=== PATIENT | male | born 1975 | race Caucasian/White ===

== ENCOUNTER 2024-04-20 15:28 | Inpatient (IN) ==
--- NOTE | 2024-04-20 15:57 | ED Triage Note ---
Date of Service April 20, 2024 Provider in Triage Author: Maggy Fernando History of Present Illness This patient was briefly evaluated while in triage. An abbreviated physical exam was performed. This patient is a 48-year-old Male who presents to the ED for evaluation of severe abdominal pain. Patient states that abdominal pain and diarrhea began last wednesday. Patient notes that his stool has pus in it and he's feeling bloated and painful with each BM. Patient was placed on Zithromax for ear infection prior to symptoms beginning but he stopped the antibiotic due to symptoms. Physical Exam Physical Exam Patient is awake, alert and oriented. Communicates well with staff. Patient does not appear in any significant distress. Abdomen soft and non-tender. Initial orders for labs and / or imaging were placed and patient was placed in the waiting area until a bed is available. Please see further documentation for the full ED course. Initial orders for labs and / or imaging were placed and patient was placed in the waiting area until a bed is available. Please see further documentation for the full ED course.
[2024-04-20 16:48] LABS: Basophils % (auto) 1.3 %; Eosinophils # (auto) 0.48 K/uL (0.00-0.50); Eosinophils % (auto) 6.2 %; Hematocrit (blood only) 43.9 % (42.0-52.0); Hemoglobin 14.2 g/dl (14.0-18.0); Immature Granulocytes # (auto) 0.04 K/uL (0.01-0.20); Immature Granulocytes % (auto) 0.5 %; Lymphocytes # (auto) 2.11 K/uL (1.20-3.40); Lymphocytes % (auto) 27.4 %; Mean Corpuscular Hemoglobin 26.9 pg (25.0-34.0); Mean Corpuscular Hgb Conc 32.3 g/dL (32.0-36.0); Mean Corpuscular Volume 83.1 fL (80.0-100.0); Mean Platelet Volume 9.1 fL (9.4-12.4); Monocytes # (auto) 0.61 K/uL (0.11-0.59); Monocytes % (auto) 7.9 %; Neutrophils # (auto) 4.37 K/uL (1.40-6.50); Neutrophils % (auto) 56.7 %; Platelet Count 303 K/uL (130-400); RDW Coefficient of Variation 14.8 % (11.5-14.5); RDW Standard Deviation 45.5 fL (36.4-46.3); Red Blood Count 5.28 M/uL (4.70-6.10); White Blood Count 7.71 K/ul (4.8-10.8)
[2024-04-20 17:05] LABS: Albumin Globulin Ratio 1.2 (0.9-2); BUN Creatinine Ratio 16.7 (10-20); Bilirubin,Total 0.3 mg/dl (0.2-1.0); Calcium 9.2 mg/dl (8.6-10.3); Globulin 3.4 gm/dl (2.5-4.0); Potassium 4.3 mmol/L (3.5-5.1); Total Protein 7.4 gm/dl (6.0-8.3)
[2024-04-20] MEDS: OPTIRAY 320 100ml IV ONE (17:23)
[2024-04-20 17:41] LABS: Appearance Urine Clear (Clear); Bilirubin Urine Negative (Negative); Blood Urine Negative (Negative); Color Urine Yellow; Glucose Urine UA Negative (Negative); Ketones Urine Negative (Negative); Leukocyte Esterase Urine Negative (Negative); Nitrite Urine Negative (Negative); Protein Urine Negative (Negative); Specific Gravity Urine 1.028 (1.000-1.030); Urobilinogen Urine Negative (Negative)
--- NOTE | 2024-04-20 18:15 | CT Scan Report ---
CT SCAN OF THE ABDOMEN AND PELVIS WITH IV CONTRAST CLINICAL HISTORY: Generalized abdominal pain. Diarrhea. COMPARISON STUDY: No priors. TECHNIQUE: Following the IV administration of 93 cc of Optiray 320, CT scan of the abdomen and pelvi s is performed from the lung bases to the proximal femora. Images are reviewed in the axial, sagittal , and coronal planes. IV contrast was administered without complication. A dose lowering technique wa s utilized adhering to the principles of ALARA. CT DOSE: 1411.04 mGy.cm FINDINGS: Lung bases: The heart is normal in size and without pericardial effusion. The lung bases are clear. T here is a small hiatal hernia. Liver: The contrast-enhanced liver is normal in size, contour, and attenuation. There is no intrahepa tic biliary ductal dilatation. The hepatic veins and portal veins are patent. Gallbladder: Unremarkable. Spleen: Normal in size and attenuation. Pancreas: Unremarkable. Adrenal glands: Unremarkable. Kidneys: The contrast enhanced kidneys are normal in size and without hydronephrosis. The kidneys enh ance symmetrically. Abdominal vasculature: The abdominal aorta is normal in course and caliber. Bowel: There is mild colonic diverticulosis. Wall thickening and inflammatory changes seen involving the sigmoid colon and at the rectosigmoid junction. There is a a 2.4 x 4.0 x 1.8 cm fluid collection between these 2 loops as seen on image #305. This favors a diverticular abscess, likely from the sigm oid colon. No bowel obstruction is seen. A large calcified appendicolith is seen at the base of the a ppendix on image #236. There is no CT evidence of acute appendicitis Peritoneum: There is no intraperitoneal free air or abdominal ascites. There is a fat-containing umbi lical hernia. Lymphadenopathy: None. Pelvic viscera: The bladder, prostate, and seminal vesicles are normal as visualized. Skeletal structures: There is mild lumbosacral spondylosis. No lytic or blastic lesions are seen. IMPRESSION: 1. Findings are most consistent with sigmoid diverticulitis. This may be subacute, and there is evide nce of a 4.0 cm diverticular abscess between the sigmoid colon and the rectosigmoid junction. This is not amenable to percutaneous drainage. 2. No intraperitoneal free air is seen. 3. A large appendicolith is seen at the base of the appendix. There is no evidence of acute appendici tis. 4. Additional findings as above. ACT 112: Negative or not required by law. Electronically signed by: Shahzad Yañez M.D. 04/20/2024 6:12 PM
--- NOTE | 2024-04-20 18:35 | Emergency Department Note ---
Impression & Plan Colonic diverticular abscess, Diverticulitis, Abdominal pain ED Provider Note NAME: DOMINGA GAN AGE: 48 SEX: M : 1975 ARRIVES VIA: Walk-In INFORMANT: Patient, ED PROVIDER(S): Elias Lai DO CHIEF COMPLAINT: Abdominal pain HPI: The patient is a 48-year-old male who presented to the emergency department for an evaluation of abdominal pain. The patient describes lower abdominal pain which began approxi-1 week ago. He has been noticing fevers subjectively at night. He also has significant pain with defecation. He notices no rectal bleeding but he has noted some loose stools. He was recently started on an antibiotic for an ear infection. He states he thought he might have C. difficile because of this. He denies having any vomiting or GI bleeding. ROS: See above HPI for pertinent positives & negatives. A total of 10 systems reviewed and were otherwise negative. PAST MEDICAL HISTORY: See Below PAST SURGICAL HISTORY: See Below FAMILY HISTORY: See Below SOCIAL HISTORY: See Below HOME MEDICATIONS: See Below ALLERGIES: See Below VITALS: See Below PHYSICAL EXAMINATION: GENERAL: Patient is awake alert in no acute distress patient is resting comfortably and showing no signs of anxiety EYES: The conjunctivae are clear. The pupils are round and reactive. EARS, NOSE, MOUTH AND THROAT: The nose is without any evidence of any deformity. NECK: The neck is nontender and supple. RESPIRATORY: Normal respiratory effort is noted there is no evidence of wheezing rhonchi or rales CARDIOVASCULAR: Regular rate and rhythm noted there no murmurs rubs or gallops normal S1 normal S2. GASTROINTESTINAL: The abdomen is distended. There is suprapubic and lower abdominal tenderness to palpation. This is moderate tenderness. MUSCULOSKELETAL/EXTREMITIES: There is no evidence of gross deformity full range of motion is noted in the hips and shoulders. SKIN: There is no obvious evidence of any rash. There are no petechiae, pallor or cyanosis noted. NEUROLOGIC: Patient is awake alert and oriented x3 gait was steady.. MEDICAL DECISION MAKING: The patient is a 48-year-old male who presented to the emergency department for an evaluation of lower abdominal pain. The patient was experiencing pain over the course of the last several days. He was also noticing fever. I discussed the patient's laboratory and radiographic studies with him. He was treated with IV fluids IV pain medication IV antiemetics and IV antibiotics for diverticular abscess. I discussed his condition with the on-call general surgeon as well as the on-call [facility]ist. They have agreed to evaluate the patient in the emergency department for further management and disposition. Triage Nursing notes reviewed. Prior medical records reviewed Vital Signs: reviewed and remarkable for no significant abnormalities Differential diagnosis: Etiologies such as appendicitis, diverticulitis, obstruction, inflammatory bowel disease, renal colic, PUD, biliary pathology, pancreatitis, mesenteric ischemia, aortic pathology, infections, genitourinary, UTI, perforated viscus, as well as others were entertained. ER treatment provided: See below Diagnostics interpreted by me: ECG: none Cardiac Monitoring: An order was placed for continuous cardiac monitoring. The monitor shows a rate of 59 bpm with sinus bradycardia.. Laboratory studies: As stated above and show below. Imaging studies: See below. Radiographic imaging was reviewed by myself Consultation(s): I discussed this case with Lauryn was on for the [facility] Hospitalist her wrist. I discussed this case with Dr. Mosquera who is on for general surgery. Past Med/Surg History Problem List (Updated 04/20/24 @ 23:37 by Elias Lai DO) Abdominal pain (Acute) Diverticulitis (Acute) Colonic diverticular abscess (Acute) Intestinal diverticular abscess Sigmoid diverticulitis Chronic rhinitis Nasal septal perforation Rotator cuff strain Wrist swelling Wrist sprain Wrist arthritis Chronic sinusitis of both maxillary sinuses (Acute) Encounter for pre-operative examination Acquired deviated nasal septum Allergic rhinitis Eustachian tube dysfunction Surgical History History of sinus surgery endoscopic sinus surgery, septoplasty, and bilateral inferior turbinate reduction on 03/27/21- Dr. Nichols History of hand surgery Pinky finger History of hernia repair x2 History of shoulder surgery History of surgery on wrist x2 Family History Father Cancer unknown type Brother Allergies Other No family history of adverse response to anesthesia No family history of bleeding disorder Social History Smoking Status: Never smoker Second Hand Exposure: No; Do You Dip or Chew Tobacco: No; Hx Alcohol Use: No Hx Substance Use: No Preferred Language: Luxembourgish Communication Ability: Effective Floor Scraper Required: No Beliefs That Will Affect Care: None marital status: Current Living Situation: Spouse current occupational status: employed 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 Feels Safe at Home: Yes Safety Concerns: Feels Safe At This Time Assistive Devices: None Allergies Allergies Allergy/AdvReac Type Severity Reaction Status Date / Time grass pollen Allergy Verified 05/29/21 13:14 house dust mite Allergy Verified 05/29/21 13:14 mold Allergy Verified 05/29/21 13:14 No Known Drug Allergies Allergy Verified 05/29/21 13:14 Home Meds Home Medications Medication Instructions Recorded Confirmed montelukast 10 mg tablet 10 mg PO DAILY PRN Allergy Symptoms 12/11/20 04/20/24 (Singulair) alprazolam 0.5 mg tablet 0.5 mg PO UD PRN Anxiety 01/10/23 04/20/24 sumatriptan succinate 50 mg tablet 50 mg PO UD PRN Migraine Headache 01/10/23 04/20/24 Results & Data (ED) Vital Signs Vital Signs - 24 hr 04/20/24 15:52 Temperature 36.5 C Temperature Source Temporal Artery Scan Pulse Rate 94 H Respiratory Rate 20 Respiratory Effort / Characteristics Non-Labored Spontaneous Respiratory Depth Normal Blood Pressure 131/94 Blood Pressure Mean 106 Pulse Oximetry 95 Oxygen Delivery Method Room Air Sepsis Recent Fever Within 48 Hours No Sepsis New/Unexplained Change in Mental Status N/A Sepsis Action Taken by Nursing No Action Required Home Medications Current Medication List: was personally reviewed by me Laboratory Data Attestation: I reviewed the patient's lab results. 04/20/24 16:30 04/20/24 16:30 Lab Results 04/20/24 04/20/24 Range/Units 16:30 17:29 WBC 7.71 (4.8-10.8) K/ul RBC 5.28 (4.70-6.10) M/uL Hgb 14.2 (14.0-18.0) g/dl Hct 43.9 (42.0-52.0) % MCV 83.1 (80.0-100.0) fL MCH 26.9 (25.0-34.0) pg MCHC 32.3 (32.0-36.0) g/dL RDW Std Deviation 45.5 (36.4-46.3) fL RDW Coeff of Traci 14.8 H (11.5-14.5) % Plt Count 303 (130-400) K/uL MPV 9.1 L (9.4-12.4) fL Immature Gran % (Auto) 0.5 % Neut % (Auto) 56.7 % Lymph % (Auto) 27.4 % [place] % (Auto) 7.9 % Eos % (Auto) 6.2 % Baso % (Auto) 1.3 % Neut # (Auto) 4.37 (1.40-6.50) K/uL Lymph # (Auto) 2.11 (1.20-3.40) K/uL [place] # (Auto) 0.61 H (0.11-0.59) K/uL Eos # (Auto) 0.48 (0.00-0.50) K/uL Baso # (Auto) 0.10 (0.00-0.20) K/uL Immature Gran # (Auto) 0.04 (0.01-0.20) K/uL Sodium 142 (136-145) mmol/L Potassium 4.3 (3.5-5.1) mmol/L Chloride 104 (98-107) mmol/L Carbon Dioxide 30 (21-32) mmol/L Anion Gap 8 (3-11) BUN 18 (6-23) mg/dl Creatinine 1.08 (0.6-1.4) mg/dl Est Cr Clr Drug Dosing 109.0 ml/min eGFR 84.65 BUN/Creatinine Ratio 16.7 (10-20) Glucose 70 (70-99(Fasting)) mg/dl Calcium 9.2 (8.6-10.3) mg/dl Total Bilirubin 0.3 (0.2-1.0) mg/dl AST 25 (13-39) U/L ALT 35 (7-52) U/L Alkaline Phosphatase 83 (34-104) U/L Total Protein 7.4 (6.0-8.3) gm/dl Albumin 4.0 (3.4-5.0) gm/dl Globulin 3.4 (2.5-4.0) gm/dl Albumin/Globulin Ratio 1.2 (0.9-2) Lipase 21 (11-82) U/L Urine Color Yellow Urine Appearance Clear (Clear) Urine pH 6.0 (4.5-7.5) Ur Specific [place] 1.028 (1.000-1.030) Urine Protein Negative (Negative) Urine Glucose (UA) Negative (Negative) Urine Ketones Negative (Negative) Urine Blood Negative (Negative) Urine Nitrite Negative (Negative) Urine Bilirubin Negative (Negative) Urine Urobilinogen Negative (Negative) Ur Leukocyte Esterase Negative (Negative) Administered Medications Enoxaparin Sodium (Enoxaparin Inj 40 Mg/0.4 Ml Syr) 40 mg SQ HS RESHMA Stop: 05/20/24 21:17 Last Admin: 04/20/24 21:30 Dose: Not Given Documented By: KASSY Lactated Ringer's (Lr) 1,000 mls @ 100 mls/hr IV .Q10H RESHMA Stop: 04/21/24 21:17 Last Admin: 04/20/24 21:31 Dose: 100 mls/hr Documented By: KASSY Morphine Sulfate (Morphine Sulfate 4 Mg/Ml 1 Ml Carp\Vial) 3 mg IV Q3H PRN PRN Reason: Severe Pain (Scale 7, 8, 9,10) Stop: 05/04/24 21:17 Last Admin: 04/20/24 21:55 Dose: 3 mg Documented By: KASSY Discontinued Medications Fentanyl Citrate (Fentanyl Citrate Pf 100 Mcg/2 Ml Vial) 50 mcg IV Q15M PRN PRN Reason: Pain Stop: 05/04/24 18:48 Last Admin: 04/20/24 19:08 Dose: 50 mcg Documented By: HARINI Piperacillin Sod/Tazobactam Sod (Zosyn) 4.5 gm in 100 mls @ 200 mls/hr IV NOW ONE; Protocol Stop: 04/20/24 18:49 Last Infusion: 04/20/24 19:42 Dose: Infused Documented By: Admin: 04/20/24 19:11 Dose: 200 mls/hr Documented By: DANIELLE Acetaminophen (Ofirmev) 1,000 mg in 100 mls @ 400 mls/hr IV NOW STA Stop: 04/20/24 19:33 Last Infusion: 04/20/24 19:59 Dose: Infused Documented By: Admin: 04/20/24 19:31 Dose: 400 mls/hr Documented By: MED Ioversol (Optiray 320 100ml) 93 ml IV ONCE ONE Stop: 04/20/24 17:23 Last Admin: 04/20/24 17:23 Dose: 93 ml Documented By: KELLY Ondansetron HCl (Ondansetron Inj 2 Mg/Ml 2 Ml Vial) 4 mg IV NOW STA Stop: 04/20/24 18:50 Last Admin: 04/20/24 19:07 Dose: 4 mg Documented By: HARINI Imaging Data Attestation: I personally reviewed and interpreted this imaging study as follows: My Impression: CT of the abdomen and pelvis was obtained in the emergency department. My interpretation is no free air or definite bowel obstruction, final report below. Radiologist's Impression: Abdomen/Pelvis CT 04/20/24 15:57 CT SCAN OF THE ABDOMEN AND PELVIS WITH IV CONTRAST CLINICAL HISTORY: Generalized abdominal pain. Diarrhea. COMPARISON STUDY: No priors. TECHNIQUE: Following the IV administration of 93 cc of Optiray 320, CT scan of the abdomen and pelvis is performed from the lung bases to the proximal femora. Images are reviewed in the axial, sagittal, and coronal planes. IV contrast was administered without complication. A dose lowering technique was utilized adhering to the principles of ALARA. CT DOSE: 1411.04 mGy.cm FINDINGS: Lung bases: The heart is normal in size and without pericardial effusion. The lung bases are clear. There is a small hiatal hernia. Liver: The contrast-enhanced liver is normal in size, contour, and attenuation. There is no intrahepatic biliary ductal dilatation. The hepatic veins and portal veins are patent. Gallbladder: Unremarkable. Spleen: Normal in size and attenuation. Pancreas: Unremarkable. Adrenal glands: Unremarkable. Kidneys: The contrast enhanced kidneys are normal in size and without hydronephrosis. The kidneys enhance symmetrically. Abdominal vasculature: The abdominal aorta is normal in course and caliber. Bowel: There is mild colonic diverticulosis. Wall thickening and inflammatory changes seen involving the sigmoid colon and at the rectosigmoid junction. There is a a 2.4 x 4.0 x 1.8 cm fluid collection between these 2 loops as seen on image #305. This favors a diverticular abscess, likely from the sigmoid colon. No bowel obstruction is seen. A large calcified appendicolith is seen at the base of the appendix on image #236. There is no CT evidence of acute appendicitis Peritoneum: There is no intraperitoneal free air or abdominal ascites. There is a fat-containing umbilical hernia. Lymphadenopathy: None. Pelvic viscera: The bladder, prostate, and seminal vesicles are normal as visualized. Skeletal structures: There is mild lumbosacral spondylosis. No lytic or blastic lesions are seen. IMPRESSION: 1. Findings are most consistent with sigmoid diverticulitis. This may be subacute, and there is evidence of a 4.0 cm diverticular abscess between the sigmoid colon and the rectosigmoid junction. This is not amenable to percutaneous drainage. 2. No intraperitoneal free air is seen. 3. A large appendicolith is seen at the base of the appendix. There is no evidence of acute appendicitis. 4. Additional findings as above. ACT 112: Negative or not required by law. Electronically signed by: Shahzad Yañez M.D. 04/20/2024 6:12 PM Discharge Plan Visit Data Chief Complaint: Abdominal Pain Stated Complaint: LOWER ABD, TROUBLE USING THE BATHROOM ED Provider: Elias Lai Discharge Problem: Colonic diverticular abscess, Diverticulitis, Abdominal pain Patient Disposition: Admitted As Inpatient Discharge Instructions Interventions: ED Discharge Assessment Last Done: 04/20/24 21:10 Discharge Problem: Abdominal pain Qualifiers: Abdominal location: lower abdomen, unspecified Qualified Code(s): R10.30 - Lower abdominal pain, unspecified
[2024-04-20] MEDS: ONDANSETRON INJ 2 MG/ML 2 ML VIAL IV STA (19:07)
[2024-04-20] MEDS: fentaNYL citrate PF 100 MCG/2 ML VIAL IV PRN (19:08)
[2024-04-20] MEDS: PIPERACILLIN/TAZOBACTAM 4.5 GM/100 ML BAG IV ONE (19:11)
[2024-04-20] MEDS: ACETAMINOPHEN 1,000 MG/100 ML VIAL IV STA (19:31)
--- NOTE | 2024-04-20 19:34 | History & Physical Report ---
Date of Service April 20, 2024 Assessment & Plan (1) Sigmoid diverticulitis: (2) Intestinal diverticular abscess: Plan This is a 48-year-old male who has significant past medical history of anxiety and seasonal allergies who presents to ED secondary to abdominal pain x 4 days. Sigmoid diverticulitis 4.0 CM diverticular abscess between sigmoid colon and rectosigmoid junction Admit to med/surg NPO, bowel rest, IVF - given IVF shortage they are set to stop after 24hrs, please ensure resumption if pt remains NPO IV antiemetics, analgesia IV Zosyn, probiotic consult general surgery - pt also reports a bulging to rectum with BM - appears pt may have a prolapsing hemorrhoid on exam, will defer to gen surg Pt has never had a C scope, will need on in 6-8 weeks once healed DVT ppx: SQ lovenox Dispo: admit to med/surg FULL CODE PCP: Elida Pt was seen and examined in collaboration with Dr. Andersen, please see addendum I spent a total of 76 minutes reviewing notes, outpatient records, labs, medication, coordinating, documenting and providing care for this patient excluding time spent in the performance of separately billed services. History of Present Illness Chief Complaint: Abd pain x 4 days. Primary Care Provider: Faith Marrero MD This is a 48-year-old male who has significant past medical history of anxiety and seasonal allergies who presents to ED secondary to abdominal pain x 4 days. 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 He states recently he went to urgent care due to fever and sinus pressure. He was told he had a sinus infection and a double ear infection. He was started on azithromycin. He took 2 days of the azithromycin and got, "deathly ill." He complained of a stabbing lower abdominal pain with nausea and diarrhea. He stopped the azithromycin and those symptoms mostly resolved. And then 4 to 5 days ago he developed dull, persistent suprapubic to left lower quadrant abdominal pain. Patient persisted over the past 4 to 5 days. In the evening he would get a persistent fever. Over the last 24 hours he has had minimal intake. He reports to pain with defecation as well as some hematochezia. He denies any chills, sweats, lightheadedness, dizziness, chest pain, shortness of breath, cough, nausea, vomiting, dysuria, increased urgency or frequency with urination. In ED patient remained hemodynamically stable though mildly tachycardic. CT abdomen pelvis reveal sigmoid diverticulitis and a 4.0 cm diverticular abscess between the sigmoid colon and rectosigmoid junction nonamenable to percutaneous drainage. Allergies Allergy/AdvReac Type Severity Reaction Status Date / Time grass pollen Allergy Verified 05/29/21 13:14 house dust mite Allergy Verified 05/29/21 13:14 mold Allergy Verified 05/29/21 13:14 No Known Drug Allergies Allergy Verified 05/29/21 13:14 Home Medications Medication Instructions Recorded Confirmed Type montelukast 10 mg tablet 10 mg PO DAILY PRN Allergy Symptoms 12/11/20 04/20/24 History (Singulair) alprazolam 0.5 mg tablet 0.5 mg PO UD PRN Anxiety 01/10/23 04/20/24 History sumatriptan succinate 50 mg tablet 50 mg PO UD PRN Migraine Headache 01/10/23 04/20/24 History Past Med/Surg History Problem List (Updated 04/20/24 @ 19:29 by Lauryn Mcgee PA-C) Intestinal diverticular abscess Sigmoid diverticulitis Chronic rhinitis Nasal septal perforation Rotator cuff strain Wrist swelling Wrist sprain Wrist arthritis Chronic sinusitis of both maxillary sinuses (Acute) Encounter for pre-operative examination Acquired deviated nasal septum Allergic rhinitis Eustachian tube dysfunction Surgical History History of sinus surgery endoscopic sinus surgery, septoplasty, and bilateral inferior turbinate reduction on 03/27/21- Dr. Nichols History of hand surgery Pinky finger History of hernia repair x2 History of shoulder surgery History of surgery on wrist x2 Family History Father Cancer unknown type Brother Allergies Other No family history of adverse response to anesthesia No family history of bleeding disorder Social History Smoking Status: Never smoker Second Hand Exposure: No; Do You Dip or Chew Tobacco: No; Hx Alcohol Use: No Hx Substance Use: No Preferred Language: Stateless Communication Ability: Effective Log Roper Required: No Beliefs That Will Affect Care: None marital status: Current Living Situation: Significant Other current occupational status: employed 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 Normal insp/exp effort, no accessory muscle use Cardiovascular: RRR, no murmur, no edema Vessels: no JVD or carotid bruit Chest: normal inspection of chest Abdomen: normal bowel sounds, soft, TTP suprapubic region, LLQ, no rebound/guarding Musculoskeletal: no cyanosis or clubbing, extremities motor strength 5/5 Skin: no rashes, warm and dry normal turgor Neurologic: PERRL, EOMI, accommodation nl, no face palsy, no dysarthria CN's II-XI intact bilaterally and moves all extremities Psychiatric: A+Ox3, euthymic affect Lymphatic: no cervical or axillary lymphadenopathy : pt with what appears to be int/ext hemorrhoid, nonthrombosed at approx 9oclock, pt reports protruding area with BM and resolves after Results & Data Results & Data Vital Signs (Past 12 Hours) Vital Signs Temp Pulse Resp BP Pulse Ox O2 Del Method 04/20/24 15:52 36.5 C 94 H 20 131/94 95 Room Air Laboratory Results I have independently reviewed and interpreted patient's admitting labs including CBC, CMP, UA Diagnostic Findings Abdomen/Pelvis CT 04/20/24 15:57 CT SCAN OF THE ABDOMEN AND PELVIS WITH IV CONTRAST CLINICAL HISTORY: Generalized abdominal pain. Diarrhea. COMPARISON STUDY: No priors. TECHNIQUE: Following the IV administration of 93 cc of Optiray 320, CT scan of the abdomen and pelvis is performed from the lung bases to the proximal femora. Images are reviewed in the axial, sagittal, and coronal planes. IV contrast was administered without complication. A dose lowering technique was utilized adhering to the principles of ALARA. CT DOSE: 1411.04 mGy.cm FINDINGS: Lung bases: The heart is normal in size and without pericardial effusion. The lung bases are clear. There is a small hiatal hernia. Liver: The contrast-enhanced liver is normal in size, contour, and attenuation. There is no intrahepatic biliary ductal dilatation. The hepatic veins and portal veins are patent. Gallbladder: Unremarkable. Spleen: Normal in size and attenuation. Pancreas: Unremarkable. Adrenal glands: Unremarkable. Kidneys: The contrast enhanced kidneys are normal in size and without hydronephrosis. The kidneys enhance symmetrically. Abdominal vasculature: The abdominal aorta is normal in course and caliber. Bowel: There is mild colonic diverticulosis. Wall thickening and inflammatory changes seen involving the sigmoid colon and at the rectosigmoid junction. There is a a 2.4 x 4.0 x 1.8 cm fluid collection between these 2 loops as seen on image #305. This favors a diverticular abscess, likely from the sigmoid colon. No bowel obstruction is seen. A large calcified appendicolith is seen at the base of the appendix on image #236. There is no CT evidence of acute appendicitis Peritoneum: There is no intraperitoneal free air or abdominal ascites. There is a fat-containing umbilical hernia. Lymphadenopathy: None. Pelvic viscera: The bladder, prostate, and seminal vesicles are normal as visualized. Skeletal structures: There is mild lumbosacral spondylosis. No lytic or blastic lesions are seen. IMPRESSION: 1. Findings are most consistent with sigmoid diverticulitis. This may be subacute, and there is evidence of a 4.0 cm diverticular abscess between the sigmoid colon and the rectosigmoid junction. This is not amenable to percutaneous drainage. 2. No intraperitoneal free air is seen. 3. A large appendicolith is seen at the base of the appendix. There is no evidence of acute appendicitis. 4. Additional findings as above. ACT 112: Negative or not required by law. Electronically signed by: Shahzad Yañez M.D. 04/20/2024 6:12 PM Medications Administered Current Inpatient Medications Fentanyl Citrate (Fentanyl Citrate Pf 100 Mcg/2 Ml Vial) 50 mcg IV Q15M PRN PRN Reason: Pain Stop: 05/04/24 18:48 Last Admin: 04/20/24 19:08 Dose: 50 mcg Acetaminophen (Ofirmev) 1,000 mg in 100 mls @ 400 mls/hr IV NOW STA Stop: 04/20/24 19:33 COVID-19 Results Results COVID-19 Adm Lab Results: RBC 5.28 M/uL (4.70-6.10) 04/20/24 WBC 7.71 K/ul (4.8-10.8) 04/20/24 Hgb 14.2 g/dl (14.0-18.0) 04/20/24 Hct 43.9 % (42.0-52.0) 04/20/24 Plt Count 303 K/uL (130-400) 04/20/24 Neutrophils (%) (Auto) 56.7 % 04/20/24 Lymphocytes (%) (Auto) 27.4 % 04/20/24 Monocytes # (Auto) 0.61 K/uL (0.11-0.59) H 04/20/24 Eosinophils # (Auto) 0.48 K/uL (0.00-0.50) 04/20/24 Immature Granulocyte % (Auto) 0.5 % 04/20/24 Neutrophils # (Auto) 4.37 K/uL (1.40-6.50) 04/20/24 Monocytes # (Auto) 0.61 K/uL (0.11-0.59) H 04/20/24 Eosinophils # (Auto) 0.48 K/uL (0.00-0.50) 04/20/24 Basophils # (Auto) 0.10 K/uL (0.00-0.20) 04/20/24 Immature Granulocyte # (Auto) 0.04 K/uL (0.01-0.20) 4 Na 142 mmol/L (136-145) 04/20/24 K 4.3 mmol/L (3.5-5.1) 04/20/24 Cl 104 mmol/L (98-107) 04/20/24 CO2 30 mmol/L (21-32) 04/20/24 Anion Gap 8 (3-11) 04/20/24 BUN 18 mg/dl (6-23) 04/20/24 Creatinine 1.08 mg/dl (0.6-1.4) 04/20/24 BUN/Creatinine Ratio 16.7 (10-20) 04/20/24 Glucose Level 70 mg/dl (70-99(Fasting)) 04/20/24 Ca 9.2 mg/dl (8.6-10.3) 04/20/24 Total Bilirubin 0.3 mg/dl (0.2-1.0) 04/20/24 AST/SGOT 25 U/L (13-39) 04/20/24 ALT/SGPT 35 U/L (7-52) 04/20/24 Alkaline Phosphatase 83 U/L (34-104) 04/20/24 Total Protein 7.4 gm/dl (6.0-8.3) 04/20/24 Albumin 4.0 gm/dl (3.4-5.0) 04/20/24 Globulin 3.4 gm/dl (2.5-4.0) 04/20/24 Albumin/Globulin Ratio 1.2 (0.9-2) 04/20/24 Code Status & VTE Plan VTE Prophylaxis Plan VTE Prophylaxis will be ordered: Yes Supervising Physician Co-Signing Physician Notes Attending addendum: The patient was seen and examined in emergency room He has been complaining of lower abdominal pain and pain on the right side of the rectum following bowel movement for the last few days Denies any abdominal distention, any nausea and/or vomiting Pain has been worse and that is the reason he is in the hospital Denies any fever and/or chills On examination Lying in bed without any acute distress Remains hemodynamically stable Chestclear to auscultate bilateral HeartS1-S2, regular Abdomensoft, not distended, tender left lower quadrant with rebound tenderness and bowel sound present Extremitiesno edema 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 No focal sensory or motor deficit appreciated His admission labs and imaging studies reviewed Noted to have 4 cm diverticular abscess involving the rectosigmoid junction without any evidence of micro and/or perforation Probably has external hemorrhoids/rectal prolapse as per description Surgery has been consulted Started with intravenous Zosyn and will continue likely convert to oral Cipro Flagyl and/or Augmentin on discharge Agree with assessment and plan as outlined above by Ameena Loaiza PA-C and take the full response of the care Dr Jose Andersen
--- NOTE | 2024-04-20 19:36 | Surgery Consultation ---
Date of Consultation April 20, 2024 Assessment & Plan (1) Sigmoid diverticulitis: Plan Patient is a 48-year-old male who presented to the ED with 4-5 days of abdominal pain. Patient also states he has worsening LLQ pain and cramping with bowel movements. He also has noted some bloody BMs and does have an external hemorrhoid on exam with no active bleeding appreciated. CT scan with results of sigmoid diverticulitis with 4cm diverticular abscess between the sigmoid colon and rectosigmoid junction. On exam the patient is tender to palpation in the LLQ however there are no signs of acute abdomen, vitals are stable and WBC wnl at 7.7. Recommend keeping patient NPO, IV hydration, and IV antibiotics to be initiated Will continue to perform serial abdominal exams and trend WBC. Patient will also need outpatient colonoscopy in 6-8 weeks Continue medical management per primary team, surgery will continue to follow History of Present Illness Reason for Consultation: Sigmoid Diverticulitis with abscess History of Present Illness Patient is 48-year-old male who presented to the ED with complaints of ongoing abdominal pain. Patient states 4-5 days ago he started with acute onset of lower abdominal pain that he describe as "stabbing" in nature. Patient states when the pain started he was unable to walk secondary to pain at times. He states he has had intermittent nausea without any episodes of emesis. He has also had diarrhea and states his abdominal pain worsens significantly with having a bowel movement. Patient also notes that he recently went to urgent care a few days ago for fevers and sinus pressure and was diagnosed with a sinus infection and double ear infection, he was prescribed Azithromycin and states after taking the antibiotics for 2 days when he became "deathly ill" and states that's also when his abdominal symptoms had started. Patient states his pain is mostly located in his left lower quadrant and it does radiate into his pelvic region especially when having a bowel movement. Patient states the the cramps and abdominal pain significantly worsens when having a BM. He has noted some bright red blood in his stool however states he does have hemorrhoids. Patient otherwise states his pain has lessened and he no longer feels nauseated. Patient was worked up in the ED and CT imaging revealed sigmoid diverticulitis with 4cm abscess between the sigmoid and rectosigmoid junction. Patient otherwise has stable vitals and WBC wnl, he is tender in the LLQ of his abdomen but otherwise has no signs of acute abdomen at this time. Patient denies ever having any previous episodes of diverticulitis. He also denies any previous abdominal surgeries or colonoscopy. Allergies Allergy/AdvReac Type Severity Reaction Status Date / Time grass pollen Allergy Verified 05/29/21 13:14 house dust mite Allergy Verified 05/29/21 13:14 mold Allergy Verified 05/29/21 13:14 No Known Drug Allergies Allergy Verified 05/29/21 13:14 Home Medications Medication Instructions Recorded Confirmed Type montelukast 10 mg tablet 10 mg PO DAILY PRN Allergy Symptoms 12/11/20 04/20/24 History (Singulair) alprazolam 0.5 mg tablet 0.5 mg PO UD PRN Anxiety 01/10/23 04/20/24 History sumatriptan succinate 50 mg tablet 50 mg PO UD PRN Migraine Headache 01/10/23 04/20/24 History Patient History Surgical History History of sinus surgery endoscopic sinus surgery, septoplasty, and bilateral inferior turbinate reduction on 03/27/21- Dr. Nichols History of hand surgery Pinky finger History of hernia repair x2 History of shoulder surgery History of surgery on wrist x2 Family History Father Cancer unknown type Brother Allergies Other No family history of adverse response to anesthesia No family history of bleeding disorder Social History Smoking Status: Never smoker Second Hand Exposure: No; Do You Dip or Chew Tobacco: No; Hx Alcohol Use: No Hx Substance Use: No Preferred Language: Upper Sorbian Communication Ability: Effective Secretary [employer] Required: No Beliefs That Will Affect Care: None marital status: Current Living Situation: Spouse current occupational status: employed 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 Feels Safe at Home: Yes Safety Concerns: Feels Safe At This Time Assistive Devices: None Review of Systems Review of Systems: All systems reviewed & are unremarkable except as noted in HPI & below Physical Exam Constitutional: WD/WN, vitals as above Respiratory: normal respiratory effort, lungs clear to auscultation Cardiovascular: RRR, no murmur, no edema Gastrointestinal (Abdomen): Inspection/Auscultation: abdomen normal to insp ection; abdomen not distended Percussion/Palpation: + abdomen tender (tenderness to the left lower quadrant ) and abdomen soft; no guarding, abdomen not rigid and abdomen not firm Rectal Exam: + hemorrhoids (External hemorrhoid at approximately 9 o'clock area. No active bleeding ) Results & Data Vital Signs (Past 12 Hours) Vital Signs Temp Pulse Resp BP Pulse Ox O2 Del Method 04/20/24 15:52 36.5 C 94 H 20 131/94 95 Room Air Diagnostic Findings CT SCAN OF THE ABDOMEN AND PELVIS WITH IV CONTRAST CLINICAL HISTORY: Generalized abdominal pain. Diarrhea. COMPARISON STUDY: No priors. TECHNIQUE: Following the IV administration of 93 cc of Optiray 320, CT scan of the abdomen and pelvis is performed from the lung bases to the proximal femora. Images are reviewed in the axial, sagittal, and coronal planes. IV contrast was administered without complication. A dose lowering technique was utilized adhering to the principles of ALARA. CT DOSE: 1411.04 mGy.cm FINDINGS: Lung bases: The heart is normal in size and without pericardial effusion. The lung bases are clear. There is a small hiatal hernia. Liver: The contrast-enhanced liver is normal in size, contour, and attenuation. There is no intrahepatic biliary ductal dilatation. The hepatic veins and portal veins are patent. Gallbladder: Unremarkable. Spleen: Normal in size and attenuation. Pancreas: Unremarkable. Adrenal glands: Unremarkable. Kidneys: The contrast enhanced kidneys are normal in size and without hydronephrosis. The kidneys enhance symmetrically. Abdominal vasculature: The abdominal aorta is normal in course and caliber. Bowel: There is mild colonic diverticulosis. Wall thickening and inflammatory changes seen involving the sigmoid colon and at the rectosigmoid junction. There is a a 2.4 x 4.0 x 1.8 cm fluid collection between these 2 loops as seen on image #305. This favors a diverticular abscess, likely from the sigmoid colon. No bowel obstruction is seen. A large calcified appendicolith is seen at the base of the appendix on image #236. There is no CT evidence of acute appendicitis Peritoneum: There is no intraperitoneal free air or abdominal ascites. There is a fat-containing umbilical hernia. Lymphadenopathy: None. Pelvic viscera: The bladder, prostate, and seminal vesicles are normal as visualized. Skeletal structures: There is mild lumbosacral spondylosis. No lytic or blastic lesions are seen. IMPRESSION: 1. Findings are most consistent with sigmoid diverticulitis. This may be subacute, and there is evidence of a 4.0 cm diverticular abscess between the sigmoid colon and the rectosigmoid junction. This is not amenable to percutaneous drainage. 2. No intraperitoneal free air is seen. 3. A large appendicolith is seen at the base of the appendix. There is no evidence of acute appendicitis. 4. Additional findings as above. ACT 112: Negative or not required by law. Electronically signed by: Shahzad Yañez M.D. 04/20/2024 6:12 PM PG Care Time/CCT Total # of Minutes Spent Total Time Spent with Patient: Total time spent is greater than 50% in coordination of care (as documented) at patient's floor/unit and/or counseling patient: Coding Level of Care Code 84241 IN/OBS CONSULT LVL 2,35M Diagnoses Sigmoid diverticulitis K57.32
[2024-04-20] MEDS: ENOXAPARIN INJ 40 MG/0.4 ML SYR SQ SCH (21:30)
[2024-04-20] MEDS: LACTATED RINGER'S 1,000 ML IV SCH (21:31)
[2024-04-20] MEDS: MoRPHine SULFATE 4 MG/ML 1 ML CARP\\VIAL IV PRN (21:55)
[2024-04-21] MEDS: PIPERACILLIN/TAZOBACTAM 4.5 GM/100 ML BAG IV SCH (00:45)
[2024-04-21] MEDS: ACETAMINOPHEN 1,000 MG/100 ML VIAL IV PRN (00:50)
[2024-04-21 07:33] LABS: Basophils # (auto) 0.08 K/uL (0.00-0.20); Basophils % (auto) 1.2 %; Eosinophils # (auto) 0.62 K/uL (0.00-0.50); Eosinophils % (auto) 9.7 %; Hemoglobin 12.7 g/dl (14.0-18.0); Immature Granulocytes # (auto) 0.06 K/uL (0.01-0.20); Immature Granulocytes % (auto) 0.9 %; Lymphocytes # (auto) 1.89 K/uL (1.20-3.40); Lymphocytes % (auto) 29.4 %; Mean Corpuscular Hemoglobin 27.1 pg (25.0-34.0); Mean Corpuscular Hgb Conc 32.6 g/dL (32.0-36.0); Mean Corpuscular Volume 83.2 fL (80.0-100.0); Mean Platelet Volume 8.9 fL (9.4-12.4); Monocytes # (auto) 0.53 K/uL (0.11-0.59); Monocytes % (auto) 8.3 %; Neutrophils # (auto) 3.24 K/uL (1.40-6.50); Neutrophils % (auto) 50.5 %; Platelet Count 269 K/uL (130-400); RDW Coefficient of Variation 14.8 % (11.5-14.5); RDW Standard Deviation 45.2 fL (36.4-46.3); Red Blood Count 4.69 M/uL (4.70-6.10); White Blood Count 6.42 K/ul (4.8-10.8)
[2024-04-21 07:53] LABS: Albumin Globulin Ratio 1.2 (0.9-2); Albumin Level 3.3 gm/dl (3.4-5.0); BUN Creatinine Ratio 19.3 (10-20); Bilirubin,Total 0.4 mg/dl (0.2-1.0); Calcium 8.6 mg/dl (8.6-10.3); Creatinine Clr Calc Pharmacy 107.6 ml/min; Globulin 2.8 gm/dl (2.5-4.0); Potassium 4.4 mmol/L (3.5-5.1); Total Protein 6.1 gm/dl (6.0-8.3)
--- NOTE | 2024-04-21 08:39 | Surgery Progress Note ---
Date of Service April 21, 2024 Assessment & Plan (1) Colonic diverticular abscess: Plan: stable. wbc normal continue NPO/IV antibiotics no plans currently for surgical intervention. Admission and Anticipated Discharge Date Admission Date: April 20, 2024 Subjective pt seen. still with LLQ/RLQ discomfort. no change. Physical Exam Constitutional: WD/WN, vitals as above no acute distress and not ill appearing Eyes: PERRL, conjunctivae normal, anicteric sclerae EOM intact bilaterally ENMT: external ear and nose normal, oropharynx normal Ears: no hearing impairment Neck: trachea midline, no thyromegaly Respiratory: normal respiratory effort; no respiratory distress and does not use accessory muscles Cardiovascular: Rate/Rhythm: regular rate and regular rhythm Gastrointestinal (Abdomen): soft. +LLQ/suprapubic ttp. no peritonitis Skin: no rashes, warm and dry Psychiatric: Orientation: alert, oriented x 3 and cooperative Results & Data Vital Signs (Past 12 Hours) Vital Signs Temp Pulse Resp BP Pulse Ox O2 Del Method 04/21/24 08:00 36.4 C L 59 L 18 114/75 98 Room Air 04/20/24 21:40 36.7 C 59 L 18 129/82 96 Room Air PG Care Time/CCT Total # of Minutes Spent Total Time Spent with Patient: Total time spent is greater than 50% in coordination of care (as documented) at patient's floor/unit and/or counseling patient: Coding Level of Care Code 43182 SUB INP/OBS CARE 07/22MIN Diagnoses Colonic diverticular abscess K57.20
[2024-04-21] MEDS: KETOROLAC 30 MG/ML VIAL IV ONE (08:41)
[2024-04-21] MEDS: ADVANCED PROBIOTIC 625 MG CAPSULE PO SCH (08:49)
--- OUTSIDE RECORDS SUMMARY | 2024-04-21 09:24 | External Medical Summary | Summary of Care ---
Author Name Unknown Organization [facility] Address [address] [place] [address] Phone [phone] Care Team Providers Care Anthropologist Physical Name Role Phone Unavailable Primary Care Provider Unavailabl e Reason for Visit * Reason Onset Date Comments Medication Refill 02/17/2024 Encounter Details Date Type Department Care Team (Late st Contact Info) Description 02/17/2024 Refill Family Practice [facility] [address] [facility] [place] [address] William Shell MD [address] [place] [address] CANDELARIA (generalized anxiety disorder) Allergies Active Allergy Reactions Criticality Noted Date Comments Amoxicillin 02/13/2000 ineffective Grass Pollen(K-O-R-T-Swt Tacos) 05/29 Molds & Smuts 05/29/2021 documented as of this encounter (statuses as of 02/29/2024) Medications Medication Sig Dispensed Refills Start Date End Date Status Loratadine 10 MG Oral Capsule Take 10 mg by mouth daily. Active Claritin-D 12 Hour 5-120 MG Tablet Extended Release 12 Hour (loratadine-pseudoep hedrine ER 5-120 mg per tab) Take 1 Tab by mouth 2 times a day. Active Triamcinolone Acetonide 55 MCG/ACT Nasal AerosolIndications:S easonal allergic rhinitis due to pollen Take 2 sprays each nares once daily 16.9 mL 2 03/28/2020 Active Montelukast Sodium 10 MG Oral Tablet (Singulair)Indicatio ns:Seasonal allergic rhinitis due to pollen Take 1 Tablet by mouth in the morning. 90 Tablet 1 07/27/2022 Active SUMAtriptan Succinate 50 MG Oral Tablet (Imitrex)Indications :Intractable migraine with aura without status migrainosus Take 2 tablets at onset of migraine and one tablet every 2 hours as needed, not more than 4 tablets in 24 hours 10 Tablet 5 07/27/2022 Active ALPRAZolam 0.5 MG Oral Tablet (xaNAX)Indications:G AD (generalized anxiety disorder) Take 1 tablet once a day as needed for anxiety use sparingly not for daily use 20 Tablet 12/25/2023 Active documented as of this encounter (statuses as of 02/29/2024) Active Problems Problem Noted Date Diagnosed Date S/P sinus surgery 04/22/2022 Overweight (BMI 25.0-29.9) 10/20/2011 ADVANCE DIRECTIVE INFORMATION 03/24/2006 Overview: Pt will supply copy of living will VARIANTS OF MIGRAINE WITH INTRACTABLE MIGRAINE, SO STATED 12/28/2003 Headache 11/22/2002 Overview: ICD-10 update of inactive term Allergic rhinitis 11/22/2002 Esophageal reflux 11/22/2002 documented as of this encounter (statuses as of 02/29/2024) Immunizations Name Administration Dates Next Due TD - Tetanus/Diptheria (ADULT) 06/28/2002 TDAP (age 10 and older)(Boostrix) 08/04/2012 documented as of this encounter Social History Tobacco Use Types Packs/Day Years Used Date Smoking Tobacco: Never Smokeless Tobacco: Never Alcohol Use Standard Drinks/Week Comments Yes 0 (1 standard drink = 0.6 oz pur e alcohol) rare PHQ-2 Answer Date Recorded PHQ Adult Total Score 0 06/03/2023 Utilities Answer Date Recorded Do you have trouble paying y our heating, water, or electric bill? (Adult - for ages 18 years and over) Not on file 12/14/2023 Is your family able to pay t he heat, water, or electric bill? (Household - for ages 0-17 years) Not on file 12/14/2023 Does your family have access to good internet? (Household - for ages 0-17 years) Not on file 12/14/2023 Social Connections Answer Date Recorded How often do you feel lonely or isolated from those around you? (Adult - for ages 18 years and over) Not on file 12/14/2023 Sex and Gender Information Value Date Recorded Sex Assigned at Not on file Gender Identity Not on file Sexual Orientation Not on file Job Start Date Occupation Industry Not on file Not on file Not on file documented as of this encounter Miscellaneous Notes * Telephone Encounter - Margarita Peña OSA - 02/29/2024 2:39 PM EDT Spoke to pt and he is out of the state right now for work and will call to schedule apt when he gets back home * Telephone Encounter - Kayleigh Higgins MD - 02/18/2024 3:43 PM EDTRefused Prescriptions: Disp Refills ALPRAZolam 0.5 MG Oral Tablet (xaNAX) 20 Tab*0 Sig: Take 1 tablet once a day as needed for anxiety use sparingly not for daily use Refused By: KAYLEIGH HIGGINS Reason for Refusal: Other (comment below) * Telephone Encounter - Kayleigh Higgins MD - 02/18/2024 3:42 PM EDT See last RF enc in november- -Needs to establish with a pcp for further refills (none listed), schedulewith any PCP in [facility] * Telephone Encounter - Ramiro Kovacs, [facility] - 02/18/2024 1:56 PM EDT Pending Prescriptions: Disp Refills ALPRAZolam 0.5 MG Oral Tablet (xaNAX) 20 Tab*0 Sig: Take 1 tablet once a day as needed for anxiety use sparingly not for daily use * Telephone Encounter - Ramiro Kovacs RP - 02/18/2024 1:56 PM EDT I have reviewed the patients controlled substance dispensing history in the Prescription Drug Monitoring Program in compliance with the [facility] regulations before prescribing a controlled substance. PDMP checked on 02/18/2024. Pending Prescriptions: Disp Refills ALPRAZolam 0.5 MG Oral Tablet (xaNAX) 20 Tab*0 Sig: Take 1 tablet once a day as needed for anxiety use sparingly not for daily use Last Visit: 06/03/2023 (in office), Visit date not found (telemedicine) Next Visit: Visit date not found Date medication was last filled: 12/24 Date medication is due for refill: 01/12 Pharmacy: [id number] Is this request for a controlled substance? Yes and Urine Drug Screen Not completed Toxicology results: No results found for this or any previous visit. Please approve if appropriate. Thanks, Ramiro Kovacs, PharmD Clinical Pharmacist [facility] ([facility]) [phone] 02/18/2024,1:56 PM documented in this encounter Plan of Treatment Health Maintenance Due Date Last Done Comments Hepatitis B Vaccine (1 of 3 - 19+ 3-dose series) 11/13/1994 Cologuard 11/13/2020 Colonoscopy 11/13/2020 Colorectal Cancer Screening 11/13/2020 Fecal Occult Blood Test 11/13/2020 Sigmoidoscopy 11/13/2020 COVID-19 Vaccine (2022-24 season) 2024 Influenza Vaccine (FLU shot) (#1) 2024 Depression Screening 06/03/2024 06/03/2023 Lipid Panel 03/28/2025 03/28/2020 Diabetes Screening 06/04/2026 06/04/2023, 1 , 02/15/2018, Additional history exists DTap/Tdap Vaccines (3 - Td or Tdap) 03/15/2030 03/15/2020, 08/04/2012, 06/28/2002 HPV (Gardasil) Vaccine Aged Out No lo nger eligible based on patient's age to complete this topic MENINGOCOCCAL (MENACTRA/MENVEO) Aged Out No longer eligible based on patient's age to complete this topic Pneumococcal Vaccine: Pediatrics (0 to 5 Years) and At-Risk Patients (6 to 64 Years) Aged Out No longer eligible based on patient's age to complete this topic documented as of this encounter Medical Devices Not on filedocumented as of this encounter Visit Diagnoses Diagnosis CANDELARIA (generalized anxiety disorder) Generalized anxiety disorder documented in this encounter
--- OUTSIDE RECORDS SUMMARY | 2024-04-21 09:24 | External Medical Summary | Summary of Care ---
Author Name Unknown Organization [facility] Address [address] [place] [address] Phone [phone] Care Team Providers Care Vascular Surgery Physician Name Role Phone Faith Marrero MD Primary Care Provider [phone] Reason for Visit * Reason Comments Medication Refill Encounter Details Date Type Department Care Team (Late st Contact Info) Description 04/18/2024 11:20 AM EDT Telemedicine Family [facility] [address] [facility] [place] [address] Faith Marrero MD [address] [facility] [place] [address] Anxiety with flying*; CANDELARIA (generalized anxiety disorder) Allergies Active Allergy Reactions Criticality Noted Date Comments Amoxicillin 02/13/2000 ineffective Grass Pollen(K-O-R-T-Swt Tacos) 05/29 Molds & Smuts 05/29/2021 documented as of this encounter (statuses as of 04/18/2024) Medications Medication Sig Dispensed Refills Start Date End Date Status Loratadine 10 MG Oral Capsule Take 10 mg by mouth daily. Active Claritin-D 12 Hour 5-120 MG Tablet Extended Release 12 Hour (loratadine-pseud oephedrine ER 5-120 mg per tab) Take 1 Tab by mouth 2 times a day. Active Triamcinolone Acetonide 55 MCG/ACT Nasal AerosolIndication s:Seasonal allergic rhinitis due to pollen Take 2 sprays each nares once daily 16.9 mL 2 03/28/2020 Active Montelukast Sodium 10 MG Oral Tablet (Singulair)Indica tions:Seasonal allergic rhinitis due to pollen Take 1 Tablet by mouth in the morning. 90 Tablet 1 07/27/2022 Active SUMAtriptan Succinate 50 MG Oral Tablet (Imitrex)Indicati ons:Intractable migraine with aura without status migrainosus Take 2 tablets at onset of migraine and one tablet every 2 hours as needed, not more than 4 tablets in 24 hours 10 Tablet 5 07/27/2022 Active ALPRAZolam 0.5 MG Oral Tablet (xaNAX)Indication s:CANDELARIA (generalized anxiety disorder),Anxiety with flying Take 1 tablet by mouth as needed for anxiety (max dose 0.5 mg daily, 20 tablets to last 90 days) 20 Tablet 04/18/2024 Active ALPRAZolam 0.5 MG Oral Tablet (xaNAX)Indication s:CANDELARIA (generalized anxiety disorder) Take 1 tablet once a day as needed for anxiety use sparingly not for daily use 20 Tablet 12/25/2023 04/18/2024 Discontinued (Refill) documented as of this encounter (statuses as of 04/18/2024) Active Problems Problem Noted Date Diagnosed Date S/P sinus surgery 04/22/2022 Overweight (BMI 25.0-29.9) 10/20/2011 ADVANCE DIRECTIVE INFORMATION 03/24/2006 Overview: Pt will supply copy of living will VARIANTS OF MIGRAINE WITH INTRACTABLE MIGRAINE, SO STATED 12/28/2003 Headache 11/22/2002 Overview: ICD-10 update of inactive term Allergic rhinitis 11/22/2002 Esophageal reflux 11/22/2002 documented as of this encounter (statuses as of 04/18/2024) Immunizations Name Administration Dates Next Due TD [...] on file documented as of this encounter Progress Notes * Faith Marrero MD - 04/18/2024 1:14 PM EDT Patient location: HOME. I was in a hospital or clinic location. After connecting through televideo, patient was verified with two unique identifiers. Patient (or authorized legal customer service representative) wasthen informed that this was a Telemedicine visit and being conducted confidentially over secure lines. Methods to assure confidentiality were taken. Patient acknowledged consent and understanding of privacy and security of the Telemedicine visit. The patient agreed to participate. Subjective Chief Complaint Patient presents with Medication Refill HPI: La Nena Harrington is a 48 year old male. Patient is unaccompanied. The following issues were addressed today: Patient presents today via telemedicine for refill of Xanax 0.5mg. He states he takes this irregularly on as needed basis for anxiety during travel and before flights. Travels frequently for work. Hewas last prescribed 20 tablets in November 2023. PDMP was reviewed. Review of Systems: See HPI Objective There were no vitals taken for this visit. Wt Readings from Last 3 Encounters: 06/03/23 94.8 kg (209 lb 0.6 oz) 12/09/21 87.8 kg (193 lb 8 oz) 06/13/21 89 kg (196 lb 2 oz) BP Readings from Last 3 Encounters: 06/17/23 116/76 06/03/23 122/92 04/22/22 122/88 General: Well-appearing, no acute distress Neurological: Alert and oriented Psychiatric: Appropriate mood and affect Assessment & Plan 1. CANDELARIA (generalized anxiety disorder) - ALPRAZolam 0.5 MG Oral Tablet (xaNAX); Take 1 tablet by mouth as needed for anxiety (max dose 0.5mg daily, 20 tablets to last 90 days) Dispense: 20 Tablet; Refill: 0 2. Anxiety with flying - ALPRAZolam 0.5 MG Oral Tablet (xaNAX); Take 1 tablet by mouth as needed for anxiety (max dose 0.5mg daily, 20 tablets to last 90 days) Dispense: 20 Tablet; Refill: 0 Discussed with patient I can provide a limited refill for him today. For future refills, he needs to make an in-person establish care appointment with myself or anotherphysician and complete a controlled substance agreement. Patient expressed understanding. Return in about 3 months (around 07/19/2024) for establish care visit. This note was electronically signed by Faith Marrero MD documented in this encounter Plan of Treatment Health Maintenance Due Date Last Done Comments Hepatitis B Vaccine (1 of 3 - 19+ 3-dose series) 11/13/1994 Cologuard 11/13/2020 Colonoscopy 11/13/2020 Colorectal Cancer Screening 11/13/2020 Fecal Occult Blood Test 11/13/2020 Sigmoidoscopy 11/13/2020 DTap/Tdap Vaccines (2 - Td or Tdap) 08/04/2022 08/04/2012, 06/28/2002 COVID-19 Vaccine ( season) 2024 Influenza Vaccine (FLU shot) (#1) 2024 Depression Screening 06/03/2024 06/03/2023 Lipid Panel 03/28/2025 03/28/2020 Diabetes Screening 06/04/2026 06/04/2023, 1 , 02/15/2018, Additional history exists HPV (Gardasil) Vaccine Aged Out No lo [...] as of this encounter Visit Diagnoses Diagnosis Anxiety with flying- Primary CANDELARIA (generalized anxiety disorder) Generalized anxiety disorder documented in this encounter Care Teams Vascular Surgery Physician Relationship Specialty Start Date End Date Faith Marrero MD [address] [facility] [place] [address] PCP - General Family Medicine 04/18/24 documented as of this encounter
--- OUTSIDE RECORDS SUMMARY | 2024-04-21 09:24 | External Medical Summary | Summary of Care ---
Author Name Unknown Organization [facility] Address [address] [place] [address] Phone [phone] Care Team Providers Care Nut Sorter Name Role Phone Faith Marrero MD Primary Care Provider [phone] Reason for Visit * Reason Onset Date Comments Appointment 04/12/2024 Encounter Details Date Type Department Care Team (Late st Contact Info) Description 04/12/2024 Telephone Family Practice [facility] [address] [place] [address] Mirian Montejo DO [address] [place] [address] Appointment Allergies Active Allergy Reactions Criticality Noted Date Comments Amoxicillin 02/13/2000 ineffective Grass Pollen(K-O-R-T-Swt Tacos) 05/29 Molds & Smuts 05/29/2021 documented as of this encounter (statuses as of 04/19/2024) Medications Medication Sig Dispensed Refills Start Date End Date Status Loratadine 10 MG Oral Capsule Take 10 mg by mouth daily. Active Claritin-D 12 Hour 5-120 MG Tablet Extended Release 12 Hour (loratadine-pseudoeph edrine ER 5-120 mg per tab) Take 1 Tab by mouth 2 times a day. Active Triamcinolone Acetonide 55 MCG/ACT Nasal AerosolIndications:Se asonal allergic rhinitis due to pollen Take 2 sprays each nares once daily 16.9 mL 2 03/28/2020 Active Montelukast Sodium 10 MG Oral Tablet (Singulair)Indication s:Seasonal allergic rhinitis due to pollen Take 1 Tablet by mouth in the morning. 90 Tablet 1 07/27/2022 Active SUMAtriptan Succinate 50 MG Oral Tablet (Imitrex)Indications: Intractable migraine with aura without status migrainosus Take 2 tablets at onset of migraine and one tablet every 2 hours as needed, not more than 4 tablets in 24 hours 10 Tablet 5 07/27/2022 Active documented as of this encounter (statuses as of 04/19/2024) Active Problems Problem Noted Date Diagnosed Date S/P sinus surgery 04/22/2022 Overweight (BMI 25.0-29.9) 10/20/2011 ADVANCE DIRECTIVE INFORMATION 03/24/2006 Overview: Pt will supply copy of living will VARIANTS OF MIGRAINE WITH INTRACTABLE MIGRAINE, SO STATED 12/28/2003 Headache 11/22/2002 Overview: ICD-10 update of inactive term Allergic rhinitis 11/22/2002 Esophageal reflux 11/22/2002 documented as of this encounter (statuses as of 04/19/2024) Immunizations Name Administration Dates Next Due TD [...] encounter Miscellaneous Notes * Telephone Encounter - Deanna Infante LPN - 04/19/2024 1:38 PM EDT Patient had video visit with PCP yesterday (04/18) * Telephone Encounter - Donato Rodrigez OSA - 04/12/2024 2:30 PM EDT No Appointments Available Patient declined appointments?: No What Visit Type is needed? Return If Acute Visit Type is needed, were surrounding clinics offered to patient (Yes/No)? Yes Was patient offered appointments with other available providers (Yes/No)? Yes See Call Details? (Yes or No): No Medication review documented in this encounter Plan of Treatment [...] Not on filedocumented as of this encounter Care Teams Nut Sorter Relationship Specialty Start Date End Date Faith Marrero MD [address] [place] [address] PCP - General Family Medicine 04/18/24 documented as of this encounter
--- OUTSIDE RECORDS SUMMARY | 2024-04-21 09:24 | External Medical Summary | Summary of Care ---
Author Name Unknown Organization [facility] Address [address] [place] [address] Phone [phone] Care Team Providers Care Computer Hardware Developer Name Role Phone Unavailable Primary Care Provider Unavailabl e Reason for Visit * Reason Onset Date Comments Medication Refill 12/24/2023 Encounter Details Date Type Department Care Team (Late st Contact Info) Description 12/24/2023 Telephone Family Practice [facility] [place] [address] [facility] [place] [address] Yajaira Talley PA-C [address] [facility] [place] [address] Medication Refill Allergies Active Allergy Reactions Criticality Noted Date Comments Amoxicillin 02/13/2000 ineffective Grass Pollen(K-O-R-T-Swt Tacos) 05/29 Molds & Smuts 05/29/2021 documented as of this encounter (statuses as of 12/25/2023) Medications Medication Sig Dispensed Refills Start Date [...] for daily use 20 Tablet 12/25/2023 Active ALPRAZolam 0.5 MG Oral Tablet (xaNAX)Indication s:CANDELARIA (generalized anxiety disorder) Take 1 tablet as needed for anxiety use sparingly not for daily use 20 Tablet 06/03/2023 12/24/2023 Discontinued (Refill) documented as of this encounter (statuses as of 12/25/2023) Active Problems Problem Noted Date Diagnosed Date S/P sinus surgery 04/22/2022 Overweight (BMI 25.0-29.9) 10/20/2011 ADVANCE DIRECTIVE INFORMATION 03/24/2006 Overview: Pt will supply copy of living will VARIANTS OF MIGRAINE WITH INTRACTABLE MIGRAINE, SO STATED 12/28/2003 Headache 11/22/2002 Overview: ICD-10 update of inactive term Allergic rhinitis 11/22/2002 Esophageal reflux 11/22/2002 documented as of this encounter (statuses as of 12/25/2023) Immunizations Name Administration Dates Next Due TD [...] encounter Miscellaneous Notes * Telephone Encounter - Moon Gilliland LPN - 12/25/2023 1:23 PM EDT Pt aware. * Telephone Encounter - William Gonzalez MD - 12/25/2023 12:46 PM EDT Signed Prescriptions: Disp Refills ALPRAZolam 0.5 MG Oral Tablet (xaNAX) 20 Tab*0 Sig: Take 1 tablet once a day as needed for anxiety use sparingly not for daily use Authorizing Provider: WILLIAM GONZALEZ * Telephone Encounter - William Gonzalez MD - 12/25/2023 12:45 PM EDT I sent med Needs to establish with a pcp for further refills (none listed), schedule with any PCP in [facility] * Telephone Encounter - Moon Gilliland LPN - 12/25/2023 12:42 PM EDT Pt called again, going on a trip tomorrow morning for work, and needs to fly. * Telephone Encounter - Kayli Barakat RPh - 12/24/2023 4:26 PM EDTPending Prescriptions: Disp Refills ALPRAZolam 0.5 MG Oral Tablet (xaNAX) 20 Tab*0 Sig: Take 1 tablet as needed for anxiety use sparingly not for daily use * Telephone Encounter - Kayli Baarkat RPh - 12/24/2023 4:23 PM EDT I have reviewed the patients controlled substance dispensing history in the Prescription Drug Monitoring Program in compliance with the [facility] regulations before prescribing a controlled substance. PDMP checked on 12/24/2023. Pending Prescriptions: Disp Refills ALPRAZolam 0.5 MG Oral Tablet (xaNAX) 20 Tab*0 Sig: Take 1 tablet as needed for anxiety use sparingly not for daily use Last Visit: 06/03/2023 (in office), Visit date not found (telemedicine) Next Visit: Visit date not found Date medication was last filled: 06/04 Date medication is due for refill: 07/03 Pharmacy: [id number] [address] [place] [address] Is this request for a controlled substance? Yes and Urine Drug Screen Not completed Toxicology results: No results found for this or any previous visit. Please approve if appropriate. Thank you, Kayli Barakat, PharmD Clinical Pharmacist [facility] ([facility]) [phone] 12/24/2023, 4:23 PM documented in this encounter Plan of Treatment Health Maintenance Due Date Last Done Comments Hepatitis B (1 of 3 - 19+ 3-dose series) 11/13/1994 Cologuard 11/13/2020 Colonoscopy 11/13/2020 Colorectal Cancer Screening 11/13/2020 Fecal Occult Blood Test 11/13/2020 Sigmoidoscopy 11/13/2020 COVID-19 Vaccine ( - 2022-24 season) 2023 Influenza Vaccine (FLU shot) (Season Ended) 2024 Depression Screening 06/03/2024 06/03/2023 Lipid Panel 03/28/2025 03/28/2020 Diabetes Screening 06/04/2026 06/04/2023, 1 , 02/15/2018, Additional history exists DTaP,Tdap,and Td Vaccines (3 - Td or Tdap) 03/15/2030 03/15/2020, 08/04/2012, 06/28/2002 GARDASIL-HPV IMMUNIZATION SERIES Aged Out No longer eligible based on [...]
[2024-04-21] MEDS: ONDANSETRON INJ 2 MG/ML 2 ML VIAL IV PRN (10:21)
[2024-04-21] MEDS: LORATADINE 10 MG TAB PO SCH (12:07)
[2024-04-21] MEDS: CETIRIZINE ORAL SOLN 1 MG/ML PO SCH (13:00)
--- NOTE | 2024-04-21 14:06 | Hospitalist Progress Note ---
Date of Service April 21, 2024 Assessment & Plan (1) Sigmoid diverticulitis: (2) Intestinal diverticular abscess: Plan This is a 48-year-old male who has significant past medical history of anxiety and seasonal allergies who presents to ED secondary to abdominal pain x 4 days. Sigmoid diverticulitis with abscess -4.0 CM diverticular abscess between sigmoid colon and rectosigmoid junction Continue n.p.o./bowel rest/IV fluids. IV Zosyn General Surgery following, no acute surgical intervention at this time Will need a colonoscopy in 6 to 8 weeks. Remains afebrile with no leukocytosis Full code DVT prophylaxis: Subcu Lovenox I spent a total of 50 minutes reviewing notes, outpatient records, labs, medication, coordinating, documenting and providing care for this patient excluding time spent in the performance of separately billed services. Admission and Anticipated Discharge Date Admission Date: April 20, 2024 Supervising Physician Co-Signing Physician Notes Plan of care discussed with above provider. Plan to continue IV antibiotics Bowel rest IV fluids Pain control Surgery on board; appreciate recommendation I have reviewed the advanced practitioner's documentation, and I agree with, and take responsibility for the plan of care Subjective Patient seen and examined. No apparent distress. Still reports some intermittent abdominal pain and just not feeling well generally. Reports the pain is worse when he tries to have a bowel movement. He has not had a bowel movement since yesterday. Reports urinating okay. No fevers overnight. Denies any vomiting but does report some intermittent nausea Review of Systems Review of Systems: All systems reviewed & are unremarkable except as noted in HPI & below Physical Exam Constitutional: WD/WN, vitals as above Eyes: PERRL, conjunctivae normal, anicteric sclerae ENMT: external ear and nose normal, oropharynx normal Neck: trachea midline, no thyromegaly Respiratory: normal respiratory effort, lungs clear to auscultation Cardiovascular: RRR, no murmur, no edema Gastrointestinal (Abdomen): normal bowel sounds, soft, nontender, no hepatosplenomegaly (Mild tenderness in left lower quadrant, no guarding) Musculoskeletal: no cyanosis or clubbing, extremities motor strength 5/5 Skin: no rashes, warm and dry Neurologic: PERRL, EOMI, accommodation nl, no face palsy, no dysarthria Psychiatric: A+Ox3, euthymic affect Results & Data Results & Data Vital Signs (Past 12 Hours) Vital Signs Temp Pulse Resp BP Pulse Ox O2 Del Method 04/21/24 08:00 36.4 C L 59 L 18 114/75 98 Room Air Laboratory Results Laboratory Results WBC 6.42 K/ul (4.8-10.8) 04/21/24 07:11 RBC 4.69 M/uL (4.70-6.10) L 04/21/24 07:11 Hgb 12.7 g/dl (14.0-18.0) L 04/21/24 07:11 Hct 39.0 % (42.0-52.0) L 04/21/24 07:11 MCV 83.2 fL (80.0-100.0) 04/21/24 07:11 MCH 27.1 pg (25.0-34.0) 04/21/24 07:11 MCHC 32.6 g/dL (32.0-36.0) 04/21/24 07:11 RDW Std Deviation 45.2 fL (36.4-46.3) 04/21/24 07:11 RDW Coeff of Traci 14.8 % (11.5-14.5) H 04/21/24 07:11 Plt Count 269 K/uL (130-400) 04/21/24 07:11 MPV 8.9 fL (9.4-12.4) L 04/21/24 07:11 Immature Gran % (Auto) 0.9 % 04/21/24 07:11 Neut % (Auto) 50.5 % 04/21/24 07:11 Lymph % (Auto) 29.4 % 04/21/24 07:11 [place] % (Auto) 8.3 % 04/21/24 07:11 Eos % (Auto) 9.7 % 04/21/24 07:11 Baso % (Auto) 1.2 % 04/21/24 07:11 Neut # (Auto) 3.24 K/uL (1.40-6.50) 04/21/24 07:11 Lymph # (Auto) 1.89 K/uL (1.20-3.40) 04/21/24 07:11 [place] # (Auto) 0.53 K/uL (0.11-0.59) 04/21/24 07:11 Eos # (Auto) 0.62 K/uL (0.00-0.50) H 04/21/24 07:11 Baso # (Auto) 0.08 K/uL (0.00-0.20) 04/21/24 07:11 Immature Gran # (Auto) 0.06 K/uL (0.01-0.20) 04/21/24 07:11 Sodium 139 mmol/L (136-145) 04/21/24 07:11 Potassium 4.4 mmol/L (3.5-5.1) 04/21/24 07:11 Chloride 103 mmol/L (98-107) 04/21/24 07:11 Carbon Dioxide 32 mmol/L (21-32) 04/21/24 07:11 Anion Gap 4 (3-11) 04/21/24 07:11 BUN 21 mg/dl (6-23) 04/21/24 07:11 Creatinine 1.09 mg/dl (0.6-1.4) 04/21/24 07:11 Est Cr Clr Drug Dosing 107.6 ml/min 04/21/24 07:11 eGFR 83.72 04/21/24 07:11 BUN/Creatinine Ratio 19.3 (10-20) 04/21/24 07:11 Glucose 93 mg/dl (70-99(Fasting)) 04/21/24 07:11 Calcium 8.6 mg/dl (8.6-10.3) 04/21/24 07:11 Total Bilirubin 0.4 mg/dl (0.2-1.0) 04/21/24 07:11 AST 17 U/L (13-39) 04/21/24 07:11 ALT 26 U/L (7-52) 04/21/24 07:11 Alkaline Phosphatase 64 U/L (34-104) 04/21/24 07:11 Total Protein 6.1 gm/dl (6.0-8.3) 04/21/24 07:11 Albumin 3.3 gm/dl (3.4-5.0) L 04/21/24 07:11 Globulin 2.8 gm/dl (2.5-4.0) 04/21/24 07:11 Albumin/Globulin Ratio 1.2 (0.9-2) 04/21/24 07:11 Lipase 21 U/L (11-82) 04/20/24 16:30 Urine Color Yellow 04/20/24 17:29 Urine Appearance Clear (Clear) 04/20/24 17:29 Urine pH 6.0 (4.5-7.5) 04/20/24 17:29 Ur Specific [place] 1.028 (1.000-1.030) 04/20/24 17:29 Urine Protein Negative (Negative) 04/20/24 17:29 Urine Glucose (UA) Negative (Negative) 04/20/24 17: Urine Ketones Negative (Negative) 04/20/24 17: Urine Blood Negative (Negative) 04/20/24 17: Urine Nitrite Negative (Negative) 04/20/24 17: Urine Bilirubin Negative (Negative) 04/20/24 17: Urine Urobilinogen Negative (Negative) 04/20/24 17:29 Ur Leukocyte Esterase Negative (Negative) 04/20/24 17:29 Impressions Abdomen/Pelvis CT 04/20/24 15:57 CT SCAN OF THE ABDOMEN AND PELVIS WITH IV CONTRAST CLINICAL HISTORY: Generalized abdominal pain. Diarrhea. COMPARISON STUDY: No priors. TECHNIQUE: Following the IV administration of 93 cc of Optiray 320, CT scan of the abdomen and pelvis is performed from the lung bases to the proximal femora. Images are reviewed in the axial, sagittal, and coronal planes. IV contrast was administered without complication. A dose lowering technique was utilized adhering to the principles of ALARA. CT DOSE: 1411.04 mGy.cm FINDINGS: Lung bases: The heart is normal in size and without pericardial effusion. The lung bases are clear. There is a small hiatal hernia. Liver: The contrast-enhanced liver is normal in size, contour, and attenuation. There is no intrahepatic biliary ductal dilatation. The hepatic veins and portal veins are patent. Gallbladder: Unremarkable. Spleen: Normal in size and attenuation. Pancreas: Unremarkable. Adrenal glands: Unremarkable. Kidneys: The contrast enhanced kidneys are normal in size and without hydronephrosis. The kidneys enhance symmetrically. Abdominal vasculature: The abdominal aorta is normal in course and caliber. Bowel: There is mild colonic diverticulosis. Wall thickening and inflammatory changes seen involving the sigmoid colon and at the rectosigmoid junction. There is a a 2.4 x 4.0 x 1.8 cm fluid collection between these 2 loops as seen on image #305. This favors a diverticular abscess, likely from the sigmoid colon. No bowel obstruction is seen. A large calcified appendicolith is seen at the base of the appendix on image #236. There is no CT evidence of acute a ppendicitis Peritoneum: There is no intraperitoneal free air or abdominal ascites. There is a fat-containing umbilical hernia. Lymphadenopathy: None. Pelvic viscera: The bladder, prostate, and seminal vesicles are normal as visualized. Skeletal structures: There is mild lumbosacral spondylosis. No lytic or blastic lesions are seen. IMPRESSION: 1. Findings are most consistent with sigmoid diverticulitis. This may be subacute, and there is evidence of a 4.0 cm diverticular abscess between the sigmoid colon and the rectosigmoid junction. This is not amenable to percutaneous drainage. 2. No intraperitoneal free air is seen. 3. A large appendicolith is seen at the base of the appendix. There is no evidence of acute appendicitis. 4. Additional findings as above. ACT 112: Negative or not required by law. Electronically signed by: Shahzad Yañez M.D. 04/20/2024 6:12 PM
[2024-04-21] MEDS: KETOROLAC TROMETHAMINE 15 MG/ML VIAL IV PRN (16:06)
[2024-04-21] MEDS: KETOROLAC TROMETHAMINE 15 MG/ML VIAL IV ONE (18:31)
[2024-04-21] MEDS: MELATONIN 3 MG TAB PO PRN (21:16)
[2024-04-21] MEDS ORDERED: FLUTICASONE PROPIONATE NA SPR 16 GM BTL PRN (22:14)
[2024-04-22 07:48] LABS: Hematocrit (blood only) 42.2 % (42.0-52.0); Hemoglobin 13.8 g/dl (14.0-18.0); Mean Corpuscular Hemoglobin 27.3 pg (25.0-34.0); Mean Corpuscular Hgb Conc 32.7 g/dL (32.0-36.0); Mean Corpuscular Volume 83.4 fL (80.0-100.0); Platelet Count 284 K/uL (130-400); RDW Coefficient of Variation 14.2 % (11.5-14.5); RDW Standard Deviation 43.2 fL (36.4-46.3); Red Blood Count 5.06 M/uL (4.70-6.10); White Blood Count 6.54 K/ul (4.8-10.8)
[2024-04-22 07:59] LABS: Albumin Globulin Ratio 1.2 (0.9-2); Albumin Level 3.4 gm/dl (3.4-5.0); BUN Creatinine Ratio 14.8 (10-20); Bilirubin,Total 0.6 mg/dl (0.2-1.0); Calcium 8.7 mg/dl (8.6-10.3); Creatinine Clr Calc Pharmacy 101.9 ml/min; Globulin 2.9 gm/dl (2.5-4.0); Potassium 3.9 mmol/L (3.5-5.1); Total Protein 6.3 gm/dl (6.0-8.3)
--- NOTE | 2024-04-22 08:52 | Hospitalist Progress Note ---
Date of Service April 22, 2024 Assessment & Plan (1) Sigmoid diverticulitis: (2) Intestinal diverticular abscess: Plan This is a 48-year-old male who has significant past medical history of anxiety and seasonal allergies who presents to ED secondary to abdominal pain x 4 days. Sigmoid diverticulitis with abscess -4.0 CM diverticular abscess between sigmoid colon and rectosigmoid junction Continue bowel rest/IV fluids. IV Zosyn, can likely trial clear liquids today 04/22 General Surgery following, no acute surgical intervention at this time Will need a colonoscopy in 6 to 8 weeks. Remains afebrile with no leukocytosis Hx migraines: Patient reports drinking caffeine on a daily basis, Toradol given yesterday with some improvement Will trial Fioricet today, CTM Full code DVT prophylaxis: Subcu Lovenox I spent a total of 50 minutes reviewing notes, outpatient records, labs, medication, coordinating, documenting and providing care for this patient excluding time spent in the performance of separately billed services. Admission and Anticipated Discharge Date Admission Date: April 20, 2024 Supervising Physician Co-Signing Physician Notes Plan of care discussed with above provider Patient is started on clear liquid diet today Plan to repeat CT abdomen/pelvis as per surgery tomorrow Continue IV antibiotics I have reviewed the advanced practitioner's documentation, and I agree with, and take responsibility for the plan of care Subjective Patient seen and examined. No apparent distress. still reports a migraine today but overall feeling much better. Denies any nausea/vomiting overnight. Still reports a stabbing pain in his lower abdomen. Review of Systems Review of Systems: All systems reviewed & are unremarkable except as noted in HPI & below Physical Exam Constitutional: WD/WN, vitals as above Eyes: PERRL, conjunctivae normal, anicteric sclerae ENMT: external ear and nose normal, oropharynx normal Neck: trachea midline, no thyromegaly Respiratory: normal respiratory effort, lungs clear to auscultation Cardiovascular: RRR, no murmur, no edema Gastrointestinal (Abdomen): normal bowel sounds, soft, nontender, no hepatosplenomegaly (Mild tenderness in left lower quadrant, no guarding) Musculoskeletal: no cyanosis or clubbing, extremities motor strength 5/5 Skin: no rashes, warm and dry Neurologic: PERRL, EOMI, accommodation nl, no face palsy, no dysarthria Psychiatric: A+Ox3, euthymic affect Results & Data Results & Data Vital Signs (Past 12 Hours) Vital Signs Temp Pulse Resp BP Pulse Ox O2 Del Method 04/22/24 07:27 36.6 C 56 L 18 143/71 H 97 Room Air 04/21/24 22:47 36.8 C 58 L 18 139/85 95 Room Air Laboratory Results Laboratory Results WBC 6.54 K/ul (4.8-10.8) 04/22/24 07:07 RBC 5.06 M/uL (4.70-6.10) 04/22/24 07:07 Hgb 13.8 g/dl (14.0-18.0) L 04/22/24 07:07 Hct 42.2 % (42.0-52.0) 04/22/24 07:07 MCV 83.4 fL (80.0-100.0) 04/22/24 07:07 MCH 27.3 pg (25.0-34.0) 04/22/24 07:07 MCHC 32.7 g/dL (32.0-36.0) 04/22/24 07:07 RDW Std Deviation 43.2 fL (36.4-46.3) 04/22/24 07:07 RDW Coeff of Traci 14.2 % (11.5-14.5) 04/22/24 07:07 Plt Count 284 K/uL (130-400) 04/22/24 07:07 MPV 9.0 fL (9.4-12.4) L 04/22/24 07:07 Immature Gran % (Auto) 0.9 % 04/21/24 07:11 Neut % (Auto) 50.5 % 04/21/24 07:11 Lymph % (Auto) 29.4 % 04/21/24 07:11 [place] % (Auto) 8.3 % 04/21/24 07:11 Eos % (Auto) 9.7 % 04/21/24 07:11 Baso % (Auto) 1.2 % 04/21/24 07:11 Neut # (Auto) 3.24 K/uL (1.40-6.50) 04/21/24 07:11 Lymph # (Auto) 1.89 K/uL (1.20-3.40) 04/21/24 07:11 [place] # (Auto) 0.53 K/uL (0.11-0.59) 04/21/24 07:11 Eos # (Auto) 0.62 K/uL (0.00-0.50) H 04/21/24 07:11 Baso # (Auto) 0.08 K/uL (0.00-0.20) 04/21/24 07:11 Immature Gran # (Auto) 0.06 K/uL (0.01-0.20) 04/21/24 07:11 Sodium 138 mmol/L (136-145) 04/22/24 07:07 Potassium 3.9 mmol/L (3.5-5.1) 04/22/24 07:07 Chloride 102 mmol/L (98-107) 04/22/24 07:07 Carbon Dioxide 31 mmol/L (21-32) 04/22/24 07:07 Anion Gap 5 (3-11) 04/22/24 07:07 BUN 17 mg/dl (6-23) 04/22/24 07:07 Creatinine 1.15 mg/dl (0.6-1.4) 04/22/24 07:07 Est Cr Clr Drug Dosing 101.9 ml/min 04/22/24 07:07 eGFR 78.50 04/22/24 07:07 BUN/Creatinine Ratio 14.8 (10-20) 04/22/24 07:07 Glucose 82 mg/dl (70-99(Fasting)) 04/22/24 07:07 Calcium 8.7 mg/dl (8.6-10.3) 04/22/24 07:07 Total Bilirubin 0.6 mg/dl (0.2-1.0) 04/22/24 07:07 AST 16 U/L (13-39) 04/22/24 07:07 ALT 21 U/L (7-52) 04/22/24 07:07 Alkaline Phosphatase 65 U/L (34-104) 04/22/24 07:07 Total Protein 6.3 gm/dl (6.0-8.3) 04/22/24 07:07 Albumin 3.4 gm/dl (3.4-5.0) 04/22/24 07:07 Globulin 2.9 gm/dl (2.5-4.0) 04/22/24 07:07 Albumin/Globulin Ratio 1.2 (0.9-2) 04/22/24 07:07 Lipase 21 U/L (11-82) 04/20/24 16:30 Urine Color Yellow 04/20/24 17:29 Urine Appearance Clear (Clear) 04/20/24 17:29 Urine pH 6.0 (4.5-7.5) 04/20/24 17:29 Ur Specific [place] 1.028 (1.000-1.030) 04/20/24 17:29 Urine Protein Negative (Negative) 04/20/24 17:29 Urine Glucose (UA) Negative (Negative) 04/20/24 17: Urine Ketones Negative (Negative) 04/20/24 17: Urine Blood Negative (Negative) 04/20/24 17: Urine Nitrite Negative (Negative) 04/20/24 17: Urine Bilirubin Negative (Negative) 04/20/24 17: Urine Urobilinogen Negative (Negative) 04/20/24 17:29 Ur Leukocyte Esterase Negative (Negative) 04/20/24 17:29 Impressions Abdomen/Pelvis CT 04/20/24 15:57 CT SCAN OF THE ABDOMEN AND PELVIS WITH IV CONTRAST CLINICAL HISTORY: Generalized abdominal pain. Diarrhea. COMPARISON STUDY: No priors. TECHNIQUE: Following the IV administration of 93 cc of Optiray 320, CT scan of the abdomen and pelvis is performed from the lung bases to the proximal femora. Images are reviewed in the axial, sagittal, and coronal planes. IV contrast was administered without complication. A dose lowering technique was utilized adhering to the principles of ALARA. CT DOSE: 1411.04 mGy.cm FINDINGS: Lung bases: The heart is normal in size and without pericardial effusion. The lung bases are clear. There is a small hiatal hernia. Liver: The contrast-enhanced liver is normal in size, contour, and attenuation. There is no intrahepatic biliary ductal dilatation. The hepatic veins and portal veins are patent. Gallbladder: Unremarkable. Spleen: Normal in size and attenuation. Pancreas: Unremarkable. Adrenal glands: Unremarkable. Kidneys: The contrast enhanced kidneys are normal in size and without hydronephrosis. The kidneys enhance symmetrically. Abdominal vasculature: The abdominal aorta is normal in course and caliber. Bowel: There is mild colonic diverticulosis. Wall thickening and inflammatory changes seen involving the sigmoid colon and at the rectosigmoid junction. There is a a 2.4 x 4.0 x 1.8 cm fluid collection between these 2 loops as seen on image #305. This favors a diverticular abscess, likely from the sigmoid colon. No bowel obstruction is seen. A large calcified appendicolith is seen at the base of the appendix on image #236. There is no CT evidence of acute appendicitis Peritoneum: There is no intraperitoneal free air or abdominal ascites. There is a fat-containing umbilical hernia. Lymphadenopathy: None. Pelvic viscera: The bladder, prostate, and seminal vesicles are normal as visualized. Skeletal structures: There is mild lumbosacral spondylosis. No lytic or blastic lesions are seen. IMPRESSION: 1. Findings are most consistent with sigmoid diverticulitis. This may be subacute, and there is evidence of a 4.0 cm diverticular abscess between the sigmoid colon and the rectosigmoid junction. This is not amenable to percutaneous drainage. 2. No intraperitoneal free air is seen. 3. A large appendicolith is seen at the base of the appendix. There is no evidence of acute appendicitis. 4. Additional findings as above. ACT 112: Negative or not required by law. Electronically signed by: Shahzad Yañez M.D. 04/20/2024 6:12 PM
[2024-04-22] MEDS: LACTATED RINGER'S 1,000 ML IV SCH (09:29)
[2024-04-22] MEDS: diphenhydrAMINE Capsule 25 MG CAP PO ONE ×2 (09:30→15:05)
[2024-04-22] MEDS: BUTALBITAL/ACETAMIN/CAFFEINE TAB PO STA ×3 (09:31→15:05)
--- NOTE | 2024-04-22 09:41 | Surgery Progress Note ---
Date of Service April 22, 2024 Assessment & Plan (1) Abdominal pain: Plan: doing ok. will repeat ct scan tomorrow to [facility] fermin will give fiorcet/benedry for AVILA which is what he uses at home stay on [facility] only for now (2) Diverticulitis: (3) Headache: Admission and Anticipated Discharge Date Admission Date: April 20, 2024 Subjective pt seen. abdominal pain still present but improving. main c/o is headaches. Physical Exam Constitutional: WD/WN, vitals as above no acute distress and not ill appearing Eyes: PERRL, conjunctivae normal, anicteric sclerae EOM intact bilaterally ENMT: external ear and nose normal, oropharynx normal Ears: no hearing impairment Neck: trachea midline, no thyromegaly Respiratory: normal respiratory effort; no respiratory distress and does not use accessory muscles Cardiovascular: Rate/Rhythm: regular rate and regular rhythm Gastrointestinal (Abdomen): soft. +ttp suprapubic and LLQ. no peritoneal signs Skin: no rashes, warm and dry Psychiatric: Orientation: alert, oriented x 3 and cooperative Results & Data Vital Signs (Past 12 Hours) Vital Signs Temp Pulse Resp BP Pulse Ox O2 Del Method 04/22/24 07:27 36.6 C 56 L 18 143/71 H 97 Room Air 04/21/24 22:47 36.8 C 58 L 18 139/85 95 Room Air PG Care Time/CCT Total # of Minutes Spent Total Time Spent with Patient: Total time spent is greater than 50% in coordination of care (as documented) at patient's floor/unit and/or counseling patient: Coding Level of Care Code 58615 SUB INP/OBS CARE /25MIN Diagnoses Abdominal pain R10.30 Abdominal location: lower abdomen, unspecified Diverticulitis K57.92 Headache R51.9 (1) Abdominal pain Abdominal location: lower abdomen, unspecified Qualified Code(s): R10.30 - Lower abdominal pain, unspecified
[2024-04-23 06:25] LABS: Hematocrit (blood only) 39.1 % (42.0-52.0); Hemoglobin 13.2 g/dl (14.0-18.0); Mean Corpuscular Hemoglobin 27.3 pg (25.0-34.0); Mean Corpuscular Hgb Conc 33.8 g/dL (32.0-36.0); Mean Platelet Volume 8.9 fL (9.4-12.4); Platelet Count 300 K/uL (130-400); RDW Coefficient of Variation 14.2 % (11.5-14.5); Red Blood Count 4.83 M/uL (4.70-6.10); White Blood Count 5.91 K/ul (4.8-10.8)
[2024-04-23 06:46] LABS: Albumin Globulin Ratio 1.2 (0.9-2); Albumin Level 3.3 gm/dl (3.4-5.0); BUN Creatinine Ratio 12.2 (10-20); Bilirubin,Total 0.4 mg/dl (0.2-1.0); Calcium 8.3 mg/dl (8.6-10.3); Creatinine Clr Calc Pharmacy 101.9 ml/min; Globulin 2.8 gm/dl (2.5-4.0); Potassium 3.9 mmol/L (3.5-5.1); Total Protein 6.1 gm/dl (6.0-8.3)
[2024-04-23] MEDS: OPTIRAY 320 100ml IV ONE (07:06)
[2024-04-23] MEDS: BUTALBITAL/ACETAMIN/CAFFEINE TAB PO STA (08:32)
[2024-04-23] MEDS: diphenhydrAMINE Capsule 25 MG CAP PO ONE (08:33)
--- NOTE | 2024-04-23 09:57 | Hospitalist Progress Note ---
Date of Service April 23, 2024 Assessment & Plan (1) Sigmoid diverticulitis: (2) Intestinal diverticular abscess: Plan This is a 48-year-old male who has significant past medical history of anxiety and seasonal allergies who presents to ED secondary to abdominal pain x 4 days. Sigmoid diverticulitis with abscess -4.0 CM diverticular abscess between sigmoid colon and rectosigmoid junction Continue bowel rest/IV fluids. IV Zosyn, diet advanced to clear liquids on 04/22 General Surgery following, no acute surgical intervention at this time Will need a colonoscopy in 6 to 8 weeks. Remains afebrile with no leukocytosis Repeat abdomen/pelvis CT completed on 04/23, pending Hx migraines: Patient reports drinking caffeine on a daily basis, Toradol given yesterday with some improvement Migraine improved with Toradol/Benadryl, continue as needed Full code DVT prophylaxis: Subcu Lovenox I spent a total of 50 minutes reviewing notes, outpatient records, labs, medication, coordinating, documenting and providing care for this patient excluding time spent in the performance of separately billed services. Admission and Anticipated Discharge Date Admission Date: April 20, 2024 Supervising Physician Co-Signing Physician Notes Chart reviewed and discussed with above provider. CT abdomen pelvis repeated as per recommendation by surgery. Will appreciate further recommendation. On full liquid diet, continue I have reviewed the advanced practitioner's documentation, and I agree with, and take responsibility for the plan of care Subjective pt seen. abdominal pain still present but improving. main c/o is headaches. Review of Systems Review of Systems: All systems reviewed & are unremarkable except as noted in HPI & below Physical Exam Constitutional: WD/WN, vitals as above (Reports migraine) well developed and well nourished; no acute distress Eyes: PERRL, conjunctivae normal, anicteric sclerae ENMT: external ear and nose normal, oropharynx normal Neck: trachea midline, no thyromegaly Respiratory: normal respiratory effort, lungs clear to auscultation Cardiovascular: RRR, no murmur, no edema Gastrointestinal (Abdomen): normal bowel sounds, soft, nontender, no hepatosplenomegaly Inspection/Auscultation: abdomen not distended and + abnormal bowel sounds Percussion/Palpation: + abdomen tender; no guarding Musculoskeletal: no cyanosis or clubbing, extremities motor strength 5/5 Gait: normal gait Skin: no rashes, warm and dry Neurologic: PERRL, EOMI, accommodation nl, no face palsy, no dysarthria Psychiatric: A+Ox3, euthymic affect Lymphatic: no cervical or axillary lymphadenopathy Results & Data Results & Data Vital Signs (Past 12 Hours) Vital Signs Temp Pulse Resp BP Pulse Ox O2 Del Method 04/23/24 07:46 36.8 C 51 L 18 103/65 98 Room Air 04/22/24 23:00 36.8 C 55 L 18 120/69 97 Room Air
--- NOTE | 2024-04-23 10:35 | Surgery Progress Note ---
Date of Service April 23, 2024 Assessment & Plan (1) Colonic diverticular abscess: Plan: wbc normal. afebrile repeat CT today. awaiting results. will make rec's after CT (2) Headache: Admission and Anticipated Discharge Date Admission Date: April 20, 2024 Subjective pt seen. continues to c/o of headaches primarily. still some mild LLQ pain Physical Exam Constitutional: WD/WN, vitals as above no acute distress and not ill appearing Eyes: PERRL, conjunctivae normal, anicteric sclerae EOM intact bilaterally ENMT: external ear and nose normal, oropharynx normal Ears: no hearing impairment Neck: trachea midline, no thyromegaly Respiratory: normal respiratory effort; no respiratory distress and does not use accessory muscles Cardiovascular: Rate/Rhythm: regular rate and regular rhythm Gastrointestinal (Abdomen): soft. mild suprapubic/LLQ ttp. no peritonitis Skin: no rashes, warm and dry Psychiatric: Orientation: alert, oriented x 3 and cooperative Results & Data Vital Signs (Past 12 Hours) Vital Signs Temp Pulse Resp BP Pulse Ox O2 Del Method 04/23/24 07:46 36.8 C 51 L 18 103/65 98 Room Air 04/22/24 23:00 36.8 C 55 L 18 120/69 97 Room Air PG Care Time/CCT Total # of Minutes Spent Total Time Spent with Patient: Total time spent is greater than 50% in coordination of care (as documented) at patient's floor/unit and/or counseling patient: Coding Level of Care Code 75742 SUB INP/OBS CARE 07/22MIN Diagnoses Colonic diverticular abscess K57.20 Headache R51.9
--- NOTE | 2024-04-23 10:52 | CT Scan Report ---
Exam(s): CT ABDOMEN + PELVIS With Contrast EXAM: CT Abdomen and Pelvis With Intravenous Contrast CLINICAL HISTORY: Reason for exam: evaluate patient's diverticulitis with abscess. TECHNIQUE: Axial computed tomography images of the abdomen and pelvis with intravenous contrast. CTDI is 26.55 mGy and DLP is 1462.15 mGy-cm. Automated exposure control was utilized for the study. A dose lowering technique was utilized adhering to the principles of ALARA. CONTRAST: Contrast must be dictated COMPARISON: Compared to CT abdomen pelvis from 04/20/24 FINDINGS: Lung bases: Unremarkable. No mass. No consolidation. ABDOMEN: Liver: Unremarkable. No mass. Gallbladder and bile ducts: Unremarkable. No calcified stones. No ductal dilation. Pancreas: Unremarkable. No mass. No ductal dilation. Spleen: Unremarkable. No splenomegaly. Adrenals: Unremarkable. No mass. Kidneys and ureters: Unremarkable. No solid mass. No hydronephrosis. Stomach and bowel: Again noted is diverticular abscess between the sigmoid colon and rectosigmoid junction measuring approximately 2.5 x 3.3 cm. Interval decrease in surrounding inflammatory changes. Stable amount of diverticulosis. No obstruction. No mucosal thickening. PELVIS: Appendix: No findings to suggest acute appendicitis. Bladder: Unremarkable. No mass. Reproductive: Unremarkable as visualized. ABDOMEN and PELVIS: Intraperitoneal space: Unremarkable. No free air. No significant fluid collection. Bones/joints: No acute fracture. No dislocation. Soft tissues: Unremarkable. Vasculature: Unremarkable. No abdominal aortic aneurysm. Lymph nodes: Unremarkable. No enlarged lymph nodes. IMPRESSION: Again noted is diverticular abscess between the sigmoid colon and rectosigmoid junction measuring approximately 2.5 x 3.3 cm. Compared to the prior exam there is more air within the abscess, which is otherwise stable in size, cannot rule out fistulous connection. Interval decrease in surrounding inflammatory changes. Stable amount of diverticulosis. Electronically signed by: Manny Enlgish MD 04/23/24 10:51 AM
[2024-04-24 06:49] LABS: Basophils # (auto) 0.09 K/uL (0.00-0.20); Basophils % (auto) 1.5 %; Eosinophils # (auto) 0.62 K/uL (0.00-0.50); Eosinophils % (auto) 10.5 %; Hematocrit (blood only) 39.9 % (42.0-52.0); Hemoglobin 13.1 g/dl (14.0-18.0); Immature Granulocytes # (auto) 0.03 K/uL (0.01-0.20); Immature Granulocytes % (auto) 0.5 %; Lymphocytes # (auto) 2.12 K/uL (1.20-3.40); Lymphocytes % (auto) 35.9 %; Mean Corpuscular Hemoglobin 27.2 pg (25.0-34.0); Mean Corpuscular Hgb Conc 32.8 g/dL (32.0-36.0); Mean Corpuscular Volume 82.8 fL (80.0-100.0); Mean Platelet Volume 8.7 fL (9.4-12.4); Monocytes # (auto) 0.56 K/uL (0.11-0.59); Monocytes % (auto) 9.5 %; Neutrophils # (auto) 2.48 K/uL (1.40-6.50); Neutrophils % (auto) 42.1 %; Platelet Count 291 K/uL (130-400); RDW Coefficient of Variation 14.3 % (11.5-14.5); RDW Standard Deviation 42.6 fL (36.4-46.3); Red Blood Count 4.82 M/uL (4.70-6.10)
[2024-04-24 07:20] LABS: Albumin Globulin Ratio 1.3 (0.9-2); Albumin Level 3.4 gm/dl (3.4-5.0); BUN Creatinine Ratio 9.6 (10-20); Bilirubin,Total 0.4 mg/dl (0.2-1.0); Calcium 8.8 mg/dl (8.6-10.3); Creatinine Clr Calc Pharmacy 102.8 ml/min; Globulin 2.7 gm/dl (2.5-4.0); Potassium 3.8 mmol/L (3.5-5.1); Total Protein 6.1 gm/dl (6.0-8.3)
--- NOTE | 2024-04-24 09:11 | Surgery Progress Note ---
<Statement entered by Mac Pillai DO - 04/24/24 15:24> I have seen and examined this patient this am and I agree with this plan. Date of Service April 24, 2024 Assessment & Plan (1) Colonic diverticular abscess: Plan: Repeat CT scan yesterday did not show increase in diverticular abscess Was advanced to full liquids , tolerating without n/v or increase in abd pain reports intermittent cramping with flatus VSS afebrile , continue IV antibiotics OOB to chair , ambulate in halls would not advance diet past fulls at this time Will follow Admission and Anticipated Discharge Date Admission Date: April 20, 2024 Subjective tolerating full liquids, N/V, +flatus reports some intermittent abd cramping with straining on toilet that goes from rectum to penis Review of Systems Constitutional: no fever and no chills Respiratory: no dyspnea Cardiovascular: no chest pain Gastrointestinal: + abdominal pain and + cramping; no bloa ting, no nausea and no vomiting Genitourinary: no dysuria Musculoskeletal: no muscle weakness Integumentary: no rash Physical Exam Constitutional: cooperative and comfortable; no acute distress Respiratory: normal respiratory effort and able to speak in complete sentences; no respiratory distress Cardiovascular: Rate/Rhythm: regular rate Gastrointestinal (Abdomen): Inspection/Auscultation: abdomen not distended Percussion/Palpation: + abdomen tender and abdomen soft Musculoskeletal: no cyanosis or clubbing, extremities motor strength 5/5 Results & Data Vital Signs (Past 12 Hours) Vital Signs Temp Pulse Resp BP BP Pulse Ox O2 Del Method 04/24/24 08:06 98.1 F 60 16 117/77 97 Room Air 04/23/24 22:15 98.4 F 66 16 127/82 97 Room Air PG Care Time/CCT Total # of Minutes Spent Total Time Spent with Patient: Total time spent is greater than 50% in coordination of care (as documented) at patient's floor/unit and/or counseling patient: Coding Level of Care Code 26579 SUB INP/OBS CARE 25MIN Diagnoses Colonic diverticular abscess K57.20
--- NOTE | 2024-04-24 11:43 | Hospitalist Progress Note ---
Date of Service April 24, 2024 Assessment & Plan (1) Sigmoid diverticulitis: (2) Intestinal diverticular abscess: Plan This is a 48-year-old male who has significant past medical history of anxiety and seasonal allergies who presents to ED secondary to abdominal pain x 4 days. Sigmoid diverticulitis with abscess 4.0 CM diverticular abscess between sigmoid colon and rectosigmoid junction IV Zosyn, diet advanced to clear liquids on 04/22 Currently on full liquids - gen surg recommends not advancing beyond this at this time General Surgery following, no acute surgical intervention at this time Will need a colonoscopy in 6 to 8 weeks. Remains afebrile with no leukocytosis * Repeat abdomen/pelvis CT completed on 04/23 Again noted is diverticular abscess between the sigmoid colon and rectosigmoid junction measuring approximately 2.5 x 3.3 cm. Compared to the prior exam there is more air within the abscess, which is otherwise stable in size, cannot rule out fistulous connection. Interval decrease in surrounding inflammatory changes. Stable amount of diverticulosis. Hx migraines: Migraine over the weekend relieved with meds Full code DVT prophylaxis: Subcu Lovenox Dispo: d/c to home when medically able, not yet medically ready Will repeat labs on 04/26 as they are remaining stable I spent a total of 46 minutes reviewing notes, outpatient records, labs, medication, coordinating, documenting and providing care for this patient excluding time spent in the performance of separately billed services. Admission and Anticipated Discharge Date Admission Date: April 20, 2024 Supervising Physician Co-Signing Physician Notes Patient seen and examined at bedside. He reports intermittent bouts of pain. Tolerating full liquid diet Continue IV antibiotics Possible discharge in next few days depending on clinical progression. I have reviewed the advanced practitioner's documentation, and I agree with, and take responsibility for the plan of care I spent a total of 25 minutes coordinating, documenting, and providing care for this patient excluding time spent in the performance of separately billed services. All of the aforementioned completed while collaborating with the assigned advanced practitioner for a full treatment plan Subjective NAEO. He is passing gas but no BM yet. He had a migraine over the weekend which was resolved with Fioricet. He reports when passing BM still has severe sensation from anus to penis. He continues to having bulging at rectum with BM straining and concerned is this is blocking. Review of Systems Review of Systems: All systems reviewed & are unremarkable except as noted in HPI & below Physical Exam Physical Exam: Gen: WD/WN, NAD, A&O x3 HEENT: Normocephalic, atraumatic, conjunctivae moist, sclerae anicteric, mucous membranes moist. Lung: Clear to Auscultation bilaterally, no wheezes/rales/rhonchi Heart: Regular rate, regular rhythm, no murmurs, rubs, or gallops Abdomen: Soft, mild TTP lower abd, ND +BS x 4 Extremities: No edema Skin: Warm, no rash, negative turgor. Results & Data Results & Data Vital Signs (Past 12 Hours) Vital Signs Temp Pulse Resp BP Pulse Ox O2 Del Method 04/24/24 08:06 36.7 C 60 16 117/77 97 Room Air Laboratory Results Short CBC 04/24/24 Range/Units 06:23 WBC 5.90 (4.8-10.8) K/ul Hgb 13.1 L (14.0-18.0) g/dl Hct 39.9 L (42.0-52.0) % Plt Count 291 (130-400) K/uL BMP 04/24/24 06:23 Sodium 139 Potassium 3.8 Chloride 103 Carbon Dioxide 31 BUN 11 Creatinine 1.14 Glucose 87 Calcium 8.8 Liver Function 04/24/24 Range/Units 06:23 Total Bilirubin 0.4 (0.2-1.0) mg/dl AST 20 (13-39) U/L ALT 24 (7-52) U/L Alkaline Phosphatase 67 (34-104) U/L Albumin 3.4 (3.4-5.0) gm/dl Medications Administered Current Inpatient Medications Cetirizine HCl (Cetirizine Oral Soln 1 Mg/Ml) 10 mg PO DAILY RESHMA Stop: 05/21/24 12:09 Last Admin: 04/24/24 08:03 Dose: 10 mg Enoxaparin Sodium (Enoxaparin Inj 40 Mg/0.4 Ml Syr) 40 mg SQ HS RESHMA Stop: 05/20/24 21:17 Last Admin: 04/23/24 22:16 Dose: Not Given Fluticasone Propionate (Fluticasone Propionate Na Spr 16 Gm Btl) 1 sprays NA DAILY PRN PRN Reason: Nasal Congestion Stop: 05/22/24 08:59 Piperacillin Sod/Tazobactam Sod (Zosyn) 4.5 gm in 100 mls @ 25 mls/hr IV Q8H RESHMA; Protocol Stop: 05/01/24 00:59 Last Admin: 04/24/24 08:02 Dose: 25 mls/hr Lactobacillus Acidophilus (Advanced Probiotic 625 Mg Capsule) 1,250 mg PO DAILY RESHMA Stop: 05/21/24 08:59 Last Admin: 04/24/24 08:03 Dose: 1,250 mg Melatonin (Melatonin 3 Mg Tab) 6 mg PO HS PRN PRN Reason: Sleep Stop: 05/20/24 21:17 Last Admin: 04/23/24 22:15 Dose: 6 mg Morphine Sulfate (Morphine Sulfate 4 Mg/Ml 1 Ml Carp\Vial) 3 mg IV Q3H PRN PRN Reason: Severe Pain (Scale 7, 8, 9,10) Stop: 05/04/24 21:17 Last Admin: 04/24/24 08:10 Dose: 3 mg Ondansetron HCl (Ondansetron Inj 2 Mg/Ml 2 Ml Vial) 4 mg IV Q6H PRN PRN Reason: Nausea Stop: 05/20/24 21:17 Last Admin: 04/22/24 07:35 Dose: 4 mg
[2024-04-24] MEDS: oxyCODONE HCL IR 5 MG TAB (IMMEDIATE RELEASE) PO PRN (21:10)
--- NOTE | 2024-04-25 09:21 | Surgery Progress Note ---
<Statement entered by Mac Pillai, - 04/25/24 12:22> discussed possible abdominal washout with the patient. along with that discussion, we discussed the possible need for colostomy and the patient is not currently willing to accept that surgical risk. For this reason, he has decided he does not want surgical intervention at this time and would prefer to give this more time on abx. We will repeat a CT today to see if there is more or complete resolution of the abscess. If not, we will discuss with IR on Wednesday. We also discussed the option of going home with IV antibiotics and the patient does not want that option. Pending CT results, we will see if potentially an extended course of oral antibiotics may be appropriate. I am not amenable to sending him home on oral antibiotics if there is much of a residual abscess. Will follow up after CT. Date of Service April 25, 2024 Assessment & Plan (1) Colonic diverticular abscess: Plan: abd pain better than yesterday however still present worse at night rates 6/10, cramping LLQ with rectal pain that radiates to penis when attempting bm reports intermittent cramping with flatus tolerating full liquids without n/v or increase in abd pain VSS afebrile , continue IV antibiotics, labs pending OOB to chair , ambulate in halls would not advance diet past fulls at this time discussion included possible abd washout sometime this week vs continue cons ervative treatment Patient desires which ever will get home sooner Will discuss with on-call surgeon, continue current tx plan for now Admission and Anticipated Discharge Date Admission Date: April 20, 2024 Subjective feeling a little better than yesterday walked outside yesterday pain tolerable during day worse at night Review of Systems Constitutional: no fever and no chills Respiratory: no dyspnea Cardiovascular: no chest pain Gastrointestinal: + abdominal pain and + cramping; no bloa ting, no nausea and no vomiting Genitourinary: no dysuria Musculoskeletal: no muscle weakness Integumentary: no rash Physical Exam Constitutional: cooperative and comfortable; no acute distress Respiratory: normal respiratory effort and able to speak in complete sentences; no respiratory distress Cardiovascular: Rate/Rhythm: regular rate Gastrointestinal (Abdomen): Inspection/Auscultation: abdomen not distended Percussion/Palpation: + abdomen tender and abdomen soft Musculoskeletal: no cyanosis or clubbing, extremities motor strength 5/5 Results & Data Vital Signs (Past 12 Hours) Vital Signs Temp Pulse Resp BP Pulse Ox O2 Del Method 04/25/24 07:53 97.7 F 51 L 16 121/83 96 Room Air PG Care Time/CCT Total # of Minutes Spent Total Time Spent with Patient: Total time spent is greater than 50% in coordination of care (as documented) at patient's floor/unit and/or counseling patient: Coding Level of Care Code 06094 SUB INP/OBS CARE 07/22MIN Diagnoses Colonic diverticular abscess K57.20
[2024-04-25 10:15] LABS: Basophils # (auto) 0.07 K/uL (0.00-0.20); Basophils % (auto) 1.2 %; Eosinophils # (auto) 0.52 K/uL (0.00-0.50); Eosinophils % (auto) 8.8 %; Hemoglobin 14.8 g/dl (14.0-18.0); Immature Granulocytes # (auto) 0.04 K/uL (0.01-0.20); Immature Granulocytes % (auto) 0.7 %; Lymphocytes # (auto) 1.73 K/uL (1.20-3.40); Lymphocytes % (auto) 29.1 %; Mean Corpuscular Hemoglobin 27.2 pg (25.0-34.0); Mean Corpuscular Hgb Conc 32.9 g/dL (32.0-36.0); Mean Corpuscular Volume 82.6 fL (80.0-100.0); Mean Platelet Volume 8.8 fL (9.4-12.4); Monocytes % (auto) 6.7 %; Neutrophils # (auto) 3.18 K/uL (1.40-6.50); Neutrophils % (auto) 53.5 %; Platelet Count 296 K/uL (130-400); RDW Coefficient of Variation 14.2 % (11.5-14.5); RDW Standard Deviation 42.7 fL (36.4-46.3); Red Blood Count 5.45 M/uL (4.70-6.10); White Blood Count 5.94 K/ul (4.8-10.8)
[2024-04-25] MEDS: diphenhydrAMINE Capsule 25 MG CAP PO ONE (10:16)
[2024-04-25] MEDS: BUTALBITAL/ACETAMIN/CAFFEINE TAB PO PRN (10:17)
[2024-04-25 10:23] LABS: BUN Creatinine Ratio 8.8 (10-20); Calcium 9.1 mg/dl (8.6-10.3); Creatinine Clr Calc Pharmacy 93.8 ml/min; Potassium 4.2 mmol/L (3.5-5.1)
[2024-04-25] MEDS: LACTATED RINGER'S 1,000 ML IV SCH (12:47)
[2024-04-25] MEDS: OPTIRAY 320 100ml IV ONE (13:41)
--- NOTE | 2024-04-25 13:45 | Hospitalist Progress Note ---
Date of Service April 25, 2024 Assessment & Plan (1) Sigmoid diverticulitis: (2) Intestinal diverticular abscess: Plan This is a 48-year-old male who has significant past medical history of anxiety and seasonal allergies who presents to ED secondary to abdominal pain x 4 days. Sigmoid diverticulitis with abscess 4.0 CM diverticular abscess between sigmoid colon and rectosigmoid junction IV Zosyn, diet advanced to clear liquids on 04/22 Currently on full liquids - gen surg recommends not advancing beyond this at this time General Surgery following, discussed with Luciana Izaguirre PA-C Will need a colonoscopy in 6 to 8 weeks. Remains afebrile with no leukocytosis * Repeat abdomen/pelvis CT completed on 04/23 Again noted is diverticular abscess between the sigmoid colon and rectosigmoid junction measuring approximately 2.5 x 3.3 cm. Compared to the prior exam there is more air within the abscess, which is otherwise stable in size, cannot rule out fistulous connection. Interval decrease in surrounding inflammatory changes. Stable amount of diverticulosis. Discussed with Gen surg today - plan to repeat CT with contrast today, consider exploratory surg vs IR depending on result, pt reluctant for surgery - will defer to gen surg given pt lack of oral intake will place on IVF for 24 hrs and re eval need as pt has mild bump in cr. Hx migraines: Migraine over the weekend relieved with meds will place on prn fiorcet, suspect due to fluid deficit Full code DVT prophylaxis: Subcu Lovenox - Place on hold un Dispo: d/c to home when medically able, not yet medically ready Will repeat labs on 04/26 as they are remaining stable I spent a total of 51 minutes reviewing notes, outpatient records, labs, medication, coordinating, documenting and providing care for this patient excluding time spent in the performance of separately billed services. Admission and Anticipated Discharge Date Admission Date: April 20, 2024 Supervising Physician Co-Signing Physician Notes Patient seen and examined at bedside He reports some pain on left lower quadrant; feels its is overall improved Vital signs are stable; no leukocytosis. Plan to continue IV antibiotic. Appreciate surgical input regarding intervention. I have reviewed the advanced practitioner's documentation, and I agree with, and take responsibility for the plan of care I spent a total of 20 minutes coordinating, documenting, and providing care for this patient excluding time spent in the performance of separately billed services. All of the aforementioned completed while collaborating with the assigned advanced practitioner for a full treatment plan Subjective Pt reports migraine @ 0430. No relief. Feels nausea. Denies f/c/s, chest pain, sob, n/v/d. Review of Systems Review of Systems: All systems reviewed & are unremarkable except as noted in HPI & below Physical Exam Physical Exam: Gen: WD/WN, NAD, A&O x3 HEENT: Normocephalic, atraumatic, conjunctivae moist, sclerae anicteric, mucous membranes moist. Lung: Clear to Auscultation bilaterally, no wheezes/rales/rhonchi Heart: Regular rate, regular rhythm, no murmurs, rubs, or gallops Abdomen: Soft, mild TTP lower abd, ND +BS x 4 Extremities: No edema Skin: Warm, no rash, negative turgor. Results & Data Results & Data Vital Signs (Past 12 Hours) Vital Signs Temp Pulse Resp BP Pulse Ox O2 Del Method 04/25/24 11:11 36.8 C 69 16 145/93 H 96 Room Air 04/25/24 07:53 36.5 C 51 L 16 121/83 96 Room Air Laboratory Results Short CBC 04/25/24 Range/Units 09:50 WBC 5.94 (4.8-10.8) K/ul Hgb 14.8 (14.0-18.0) g/dl Hct 45.0 (42.0-52.0) % Plt Count 296 (130-400) K/uL BMP 04/25/24 09:50 Sodium 137 Potassium 4.2 Chloride 101 Carbon Dioxide 30 BUN 11 Creatinine 1.25 Glucose 121 H Calcium 9.1 Medications Administered Current Inpatient Medications Acetaminophen/Butalbital/Caffeine (Butalbital/Acetamin/Caffeine Tab) 1 tab PO Q6H PRN PRN Reason: Headache Stop: 05/25/24 07:45 Last Admin: 04/25/24 10:17 Dose: 1 tab Cetirizine HCl (Cetirizine Oral Soln 1 Mg/Ml) 10 mg PO DAILY RESHMA Stop: 05/21/24 12:09 Last Admin: 04/25/24 10:05 Dose: Not Given Enoxaparin Sodium (Enoxaparin Inj 40 Mg/0.4 Ml Syr) 40 mg SQ HS RESHMA Stop: 05/20/24 21:17 Last Admin: 04/24/24 21:22 Dose: Not Given Fluticasone Propionate (Fluticasone Propionate Na Spr 16 Gm Btl) 1 sprays NA DAILY PRN PRN Reason: Nasal Congestion Stop: 05/22/24 08:59 Piperacillin Sod/Tazobactam Sod (Zosyn) 4.5 gm in 100 mls @ 25 mls/hr IV Q8H RESHMA; Protocol Stop: 05/01/24 00:59 Last Admin: 04/25/24 10:02 Dose: 25 mls/hr Lactated Ringer's (Lr) 1,000 mls @ 125 mls/hr IV .Q8H RESHMA Stop: 04/26/24 11:59 Last Admin: 04/25/24 12:47 Dose: 125 mls/hr Lactobacillus Acidophilus (Advanced Probiotic 625 Mg Capsule) 1,250 mg PO DAILY RESHMA Stop: 05/21/24 08:59 Last Admin: 04/25/24 10:16 Dose: 1,250 mg Melatonin (Melatonin 3 Mg Tab) 6 mg PO HS PRN PRN Reason: Sleep Stop: 05/20/24 21:17 Last Admin: 04/24/24 21:10 Dose: 6 mg Morphine Sulfate (Morphine Sulfate 4 Mg/Ml 1 Ml Carp\Vial) 3 mg IV Q3H PRN PRN Reason: Severe Pain (Scale 7, 8, 9,10) Stop: 05/04/24 21:17 Last Admin: 04/25/24 07:25 Dose: 3 mg Ondansetron HCl (Ondansetron Inj 2 Mg/Ml 2 Ml Vial) 4 mg IV Q6H PRN PRN Reason: Nausea Stop: 05/20/24 21:17 Last Admin: 04/22/24 07:35 Dose: 4 mg Oxycodone HCl (Oxycodone Hcl Ir 5 Mg Tab (Immediate Release)) 5 mg PO Q6H PRN PRN Reason: Pain Stop: 05/08/24 18:55 Last Admin: 04/25/24 04:31 Dose: 5 mg
[2024-04-25] MEDS: oxyCODONE HCL IR 5 MG TAB (IMMEDIATE RELEASE) PO PRN (14:28)
--- NOTE | 2024-04-25 14:31 | CT Scan Report ---
ABDOMEN AND PELVIS CT WITH IV CONTRAST CT DOSE: 1444.03 mGy.cm HISTORY: Acute generalized abdominal pain eval diverticulitis w abscess TECHNIQUE: Multiaxial CT images of the abdomen and pelvis were performed following the IV administrat ion of 94 cc of Optiray, A dose lowering technique was utilized adhering to the principles of ALARA. COMPARISON STUDY: 04/23/2024, 04/20/2024 FINDINGS: The lung bases are clear. The liver, spleen, gallbladder, pancreas, kidneys, and adrenal gl ands are within normal limits. Subcentimeter appendicolith redemonstrated without CT evidence of acut e appendicitis. Small hiatal hernia. Colonic diverticulosis with mild acute diverticulitis redemonstr ated. There is decreased inflammatory stranding in the pelvis. No drainable fluid collections. Previo usly noted pericolonic abscess is now predominantly just air-filled measuring 4.4 cm on image 305 ser ies 3 small portion of the abscess in the perirectal distribution on image 317 series 3 is stable. A few scattered foci of extra luminal air noted within the left hemipelvis adjacent to the internal cheo ac vessels, image 290 series 3 for example. Prostate is borderline enlarged. Urinary bladder wall thi ckening with partial distention. IMPRESSION: 1. Acute sigmoid diverticulitis redemonstrated with mildly decreased inflammatory changes. 2. Contained perforation/abscess within the sigmoid mesocolon/perirectal tissues redemonstrated which has a decreased amount of fluid within the collection and is predominantly now just air-filled. An u nderlying sinus tract/fistulous connection with the adjacent sigmoid would be difficult to exclude. N o drainable fluid collections are present. 3. There are a few small locules of extra luminal air within the left hemipelvis adjacent to the inte rnal iliac vessels compatible with microperforation. 4. No bowel obstruction. ACT 112: Negative or not required by law. The above report was generated using voice recognition software. It may contain grammatical, syntax o r spelling errors. Electronically signed by: Jose Cruz Lowery M.D. 04/25/2024 2:29 PM
[2024-04-26] MEDS: diphenhydrAMINE Capsule 25 MG CAP PO ONE (08:28)
[2024-04-26 08:53] LABS: Basophils # (auto) 0.07 K/uL (0.00-0.20); Basophils % (auto) 1.4 %; Eosinophils # (auto) 0.63 K/uL (0.00-0.50); Eosinophils % (auto) 12.2 %; Hematocrit (blood only) 40.7 % (42.0-52.0); Hemoglobin 13.4 g/dl (14.0-18.0); Immature Granulocytes # (auto) 0.02 K/uL (0.01-0.20); Immature Granulocytes % (auto) 0.4 %; Lymphocytes % (auto) 32.8 %; Mean Corpuscular Hemoglobin 27.1 pg (25.0-34.0); Mean Corpuscular Hgb Conc 32.9 g/dL (32.0-36.0); Mean Corpuscular Volume 82.4 fL (80.0-100.0); Mean Platelet Volume 8.7 fL (9.4-12.4); Monocytes # (auto) 0.42 K/uL (0.11-0.59); Monocytes % (auto) 8.1 %; Neutrophils # (auto) 2.34 K/uL (1.40-6.50); Neutrophils % (auto) 45.1 %; Platelet Count 261 K/uL (130-400); RDW Coefficient of Variation 14.2 % (11.5-14.5); RDW Standard Deviation 41.9 fL (36.4-46.3); Red Blood Count 4.94 M/uL (4.70-6.10); White Blood Count 5.18 K/ul (4.8-10.8)
[2024-04-26 09:14] LABS: Albumin Globulin Ratio 1.3 (0.9-2); Albumin Level 3.5 gm/dl (3.4-5.0); BUN Creatinine Ratio 8.2 (10-20); Bilirubin,Total 0.4 mg/dl (0.2-1.0); Calcium 8.9 mg/dl (8.6-10.3); Creatinine Clr Calc Pharmacy 106.6 ml/min; Globulin 2.8 gm/dl (2.5-4.0); Potassium 4.2 mmol/L (3.5-5.1); Total Protein 6.3 gm/dl (6.0-8.3)
--- NOTE | 2024-04-26 10:37 | Surgery Progress Note ---
<Statement entered by Mac Pillai DO - 04/26/24 12:31> I have seen and examined this patient with the surgical team and I agree with plan Date of Service April 26, 2024 Assessment & Plan (1) Colonic diverticular abscess: Plan: Patient here w/ diverticulitis with abscess, not amenable for drainage per radiology on admitting CT scan. in addition our IR dept is out this wk -WBC 5, afebrile with stable vitals -Continues to make slow progress. Options discussed with patient yesterday for consideration of abdominal washout, with the possibility of colonic resection/colostomy formation if deemed indicated intraop, vs continuing IV abx for now with ongoing monitoring. patient reasonably wants to avoid colostomy. we opted to repeat a CT a/p yesterday which showed some decreased inflammation, resolution of the fluid in abscess and is now predominately air filled without any drainable fluid collections, and some small foci of extraluminal air consistent with microperforation - Pt reports feeling some mild improvement today compared to yesterday. we will allow patient to resume full liquids and continue IV abx - he is passing flatus, no BM yet - we will continue to monitor pt closely and hope that he continues to turn the corner and avoid surgical intervention Admission and Anticipated Discharge Date Admission Date: April 20, 2024 Subjective Patient reports feeling some improvement compared to yesterday. Pain is worse at night time and when passing flatus. No nausea/vomiting. Reports + headache. Physical Exam Physical Exam: awake/alert, no distress Gastrointestinal (Abdomen): Inspection/Auscultation: abdomen not distended Percussion/Palpation: + abdomen tender (slightly improved ttp in supra pubic/llq regions ) and abdomen soft Results & Data Vital Signs (Past 12 Hours) Vital Signs Temp Pulse Resp BP Pulse Ox O2 Del Method 04/26/24 07:57 98.2 F 53 L 16 123/77 95 Room Air PG Care Time/CCT Total # of Minutes Spent Total Time Spent with Patient: Total time spent is greater than 50% in coordination of care (as documented) at patient's floor/unit and/or counseling patient: Coding Level of Care Code 62463 SUB INP/OBS CARE 07/22MIN Diagnoses Colonic diverticular abscess K57.20
--- NOTE | 2024-04-26 12:23 | Hospitalist Progress Note ---
Date of Service April 26, 2024 Assessment & Plan (1) Sigmoid diverticulitis: (2) Intestinal diverticular abscess: Plan This is a 48-year-old male who has significant past medical history of anxiety and seasonal allergies who presents to ED secondary to abdominal pain x 4 days. Sigmoid diverticulitis with abscess 4.0 CM diverticular abscess between sigmoid colon and rectosigmoid junction IV Zosyn, diet advanced to clear liquids on 04/22 Currently on full liquids - gen surg recommends not advancing beyond this at this time General Surgery following, discussed with Luciana Izaguirre PA-C Will need a colonoscopy in 6 to 8 weeks. Remains afebrile with no leukocytosis * Repeat abdomen/pelvis CT completed on 04/23 Again noted is diverticular abscess between the sigmoid colon and rectosigmoid junction measuring approximately 2.5 x 3.3 cm. Compared to the prior exam there is more air within the abscess, which is otherwise stable in size, cannot rule out fistulous connection. Interval decrease in surrounding inflammatory changes. Stable amount of diverticulosis. * Repeat CT a/p 04/25: Acute sigmoid diverticulitis remonstrate with mildly decreased inflammatory changes.2. Contained perforation/abscess within the sigmoid mesocolon/perirectal tissues redemonstrated which has a decreased amount of fluid within the collection and is predominantly now just air- filled. An underlying sinus tract/fistulous connection with the adjacent sigmoid would be difficult to exclude. No drainable fluid collections are present.3. There are a few small locules of extra luminal air within the left hemipelvis adjacent to the internal iliac vessels compatible with microperforation. Discussed with general surgery plan is to maintain the course for now with IV antibiotics as he is showing slow improvement in hopes to avoid surgery Hx migraines: Migraine over the weekend relieved with meds will place on prn fiorcet and benadryl Full code DVT prophylaxis: Subcu Lovenox resumed as pt is not undergoing surgical eval Dispo: d/c to home when medically able, not yet medically ready I spent a total of 45 minutes reviewing notes, outpatient records, labs, medication, coordinating, documenting and providing care for this patient excluding time spent in the performance of separately billed services. Admission and Anticipated Discharge Date Admission Date: April 20, 2024 Supervising Physician Co-Signing Physician Notes Patient seen and examined at bedside He reports some pain on left lower quadrant; feels its is overall improving Vital signs are stable; no leukocytosis. Plan to continue IV antibiotic. Appreciate surgical input regarding interv ention - conservative mx for now. I have reviewed the advanced practitioner's documentation, and I agree with, and take responsibility for the plan of care I spent a total of 20 minutes coordinating, documenting, and providing care for this patient excluding time spent in the performance of separately billed services. All of the aforementioned completed while collaborating with the assigned advanced practitioner for a full treatment plan Subjective Pt is having a migraine again this morning. He states it is from not sleeping well. He is having some LLQ abd pain but minimal. He is tolerating full liquids. Denies f/c/s, chest pain, sob, n/v. He has not yet had a BM. Review of Systems Review of Systems: All systems reviewed & are unremarkable except as noted in HPI & below Physical Exam Physical Exam: Gen: WD/WN, NAD, A&O x3 HEENT: Normocephalic, atraumatic, conjunctivae moist, sclerae anicteric, mucous membranes moist. Lung: Clear to Auscultation bilaterally, no wheezes/rales/rhonchi Heart: Regular rate, regular rhythm, no murmurs, rubs, or gallops Abdomen: Soft, mild TTP lower abd, ND +BS x 4 Extremities: No edema Skin: Warm, no rash, negative turgor. Results & Data Results & Data Vital Signs (Past 12 Hours) Vital Signs Temp Pulse Resp BP Pulse Ox O2 Del Method 04/26/24 08:45 Room Air 04/26/24 07:57 36.8 C 53 L 16 123/77 95 Room Air Laboratory Results Short CBC 04/26/24 Range/Units 08:28 WBC 5.18 (4.8-10.8) K/ul Hgb 13.4 L (14.0-18.0) g/dl Hct 40.7 L (42.0-52.0) % Plt Count 261 (130-400) K/uL BMP 04/26/24 08:28 Sodium 137 Potassium 4.2 Chloride 103 Carbon Dioxide 31 BUN 9 Creatinine 1.10 Glucose 83 Calcium 8.9 Liver Function 04/26/24 Range/Units 08:28 Total Bilirubin 0.4 (0.2-1.0) mg/dl AST 28 (13-39) U/L ALT 36 (7-52) U/L Alkaline Phosphatase 71 (34-104) U/L Albumin 3.5 (3.4-5.0) gm/dl Diagnostic Findings Abdomen/Pelvis CT 04/20/24 15:57 CT SCAN OF THE ABDOMEN AND PELVIS WITH IV CONTRAST CLINICAL HISTORY: Generalized abdominal pain. Diarrhea. COMPARISON STUDY: No priors. TECHNIQUE: Following the IV administration of 93 cc of Optiray 320, CT scan of the abdomen and pelvis is performed from the lung bases to the proximal femora. Images are reviewed in the axial, sagittal, and coronal planes. IV contrast was administered without complication. A dose lowering technique was utilized adhering to the principles of ALARA. CT DOSE: 1411.04 mGy.cm FINDINGS: Lung bases: The heart is normal in size and without pericardial effusion. The lung bases are clear. There is a small hiatal hernia. Liver: The contrast-enhanced liver is normal in size, contour, and attenuation. There is no intrahepatic biliary ductal dilatation. The hepatic veins and portal veins are patent. Gallbladder: Unremarkable. Spleen: Normal in size and attenuation. Pancreas: Unremarkable. Adrenal glands: Unremarkable. Kidneys: The contrast enhanced kidneys are normal in size and without hydronephrosis. The kidneys enhance symmetrically. Abdominal vasculature: The abdominal aorta is normal in course and caliber. Bowel: There is mild colonic diverticulosis. Wall thickening and inflammatory changes seen involving the sigmoid colon and at the rectosigmoid junction. There is a a 2.4 x 4.0 x 1.8 cm fluid collection between these 2 loops as seen on image #305. This favors a diverticular abscess, likely from the sigmoid colon. No bowel obstruction is seen. A large calcified appendicolith is seen at the base of the appendix on image #236. There is no CT evidence of acute appendicitis Peritoneum: There is no intraperitoneal free air or abdominal ascites. There is a fat-containing umbilical hernia. Lymphadenopathy: None. Pelvic viscera: The bladder, prostate, and seminal vesicles are normal as visualized. Skeletal structures: There is mild lumbosacral spondylosis. No lytic or blastic lesions are seen. IMPRESSION: 1. Findings are most consistent with sigmoid diverticulitis. This may be subacute, and there is evidence of a 4.0 cm diverticular abscess between the sigmoid colon and the rectosigmoid junction. This is not amenable to percutaneous drainage. 2. No intraperitoneal free air is seen. 3. A large appendicolith is seen at the base of the appendix. There is no evidence of acute appendicitis. 4. Additional findings as above. ACT 112: Negative or not required by law. Electronically signed by: Shahzad Yañez M.D. 04/20/2024 6:12 PM Abdomen/Pelvis CT 04/23/24 07:00 Exam(s): CT ABDOMEN + PELVIS With Contrast EXAM: CT Abdomen and Pelvis With Intravenous Contrast CLINICAL HISTORY: Reason for exam: evaluate patient's diverticulitis with abscess. TECHNIQUE: Axial computed tomography images of the abdomen and pelvis with intravenous contrast. CTDI is 26.55 mGy and DLP is 1462.15 mGy-cm. Automated exposure control was utilized for the study. A dose lowering technique was utilized adhering to the principles of ALARA. CONTRAST: Contrast must be dictated COMPARISON: Compared to CT abdomen pelvis from 04/20/24 FINDINGS: Lung bases: Unremarkable. No mass. No consolidation. ABDOMEN: Liver: Unremarkable. No mass. Gallbladder and bile ducts: Unremarkable. No calcified stones. No ductal dilation. Pancreas: Unremarkable. No mass. No ductal dilation. Spleen: Unremarkable. No splenomegaly. Adrenals: Unremarkable. No mass. Kidneys and ureters: Unremarkable. No solid mass. No hydronephrosis. Stomach and bowel: Again noted is diverticular abscess between the sigmoid colon and rectosigmoid junction measuring approximately 2.5 x 3.3 cm. Interval decrease in surrounding inflammatory changes. Stable amount of diverticulosis. No obstruction. No mucosal thickening. PELVIS: Appendix: No findings to suggest acute appendicitis. Bladder: Unremarkable. No mass. Reproductive: Unremarkable as visualized. ABDOMEN and PELVIS: Intraperitoneal space: Unremarkable. No free air. No significant fluid collection. Bones/joints: No acute fracture. No dislocation. Soft tissues: Unremarkable. Vasculature: Unremarkable. No abdominal aortic aneurysm. Lymph nodes: Unremarkable. No enlarged lymph nodes. IMPRESSION: Again noted is diverticular abscess between the sigmoid colon and rectosigmoid junction measuring approximately 2.5 x 3.3 cm. Compared to the prior exam there is more air within the abscess, which is otherwise stable in size, cannot rule out fistulous connection. Interval decrease in surrounding inflammatory changes. Stable amount of diverticulosis. Electronically signed by: Manny English MD 04/23/24 10:51 AM Abdomen/Pelvis CT 04/25/24 11:[address] WITH IV CONTRAST CT DOSE: 1444.03 mGy.cm HISTORY: Acute generalized abdominal pain eval diverticulitis w abscess TECHNIQUE: Multiaxial CT images of the abdomen and pelvis were performed following the IV administration of 94 cc of Optiray, A dose lowering technique was utilized adhering to the principles of ALARA. COMPARISON STUDY: 04/23/2024, 04/20/2024 FINDINGS: The lung bases are clear. The liver, spleen, gallbladder, pancreas, kidneys, and adrenal glands are within normal limits. Subcentimeter appendicolith redemonstrated without CT evidence of acute appendicitis. Small hiatal hernia. Colonic diverticulosis with mild acute diverticulitis redemonstrated. There is decreased inflammatory stranding in the pelvis. No drainable fluid collections. Previously noted pericolonic abscess is now predominantly just air-filled measuring 4.4 cm on image 305 series 3 small portion of the abscess in the perirectal distribution on image 317 series 3 is stable. A few scattered foci of extra luminal air noted within the left hemipelvis adjacent to the internal iliac vessels, image 290 series 3 for example. Prostate is borderline enlarged. Urinary bladder wall thickening with partial distention. IMPRESSION: 1. Acute sigmoid diverticulitis redemonstrated with mildly decreased inflammatory changes. 2. Contained perforation/abscess within the sigmoid mesocolon/perirectal tissues redemonstrated which has a decreased amount of fluid within the collection and is predominantly now just air-filled. An underlying sinus tract/fistulous conn ection with the adjacent sigmoid would be difficult to exclude. No drainable fluid collections are present. 3. There are a few small locules of extra luminal air within the left hemipelvis adjacent to the internal iliac vessels compatible with microperforation. 4. No bowel obstruction. ACT 112: Negative or not required by law. The above report was generated using voice recognition software. It may contain grammatical, syntax or spelling errors. Electronically signed by: Jose Cruz Lowery M.D. 04/25/2024 2:29 PM Medications Administered Current Inpatient Medications Acetaminophen/Butalbital/Caffeine (Butalbital/Acetamin/Caffeine Tab) 1 tab PO Q6H PRN PRN Reason: Headache Stop: 05/25/24 07:45 Last Admin: 04/26/24 08:28 Dose: 1 tab Cetirizine HCl (Cetirizine Oral Soln 1 Mg/Ml) 10 mg PO DAILY RESHMA Stop: 05/21/24 12:09 Last Admin: 04/26/24 08:28 Dose: 10 mg Diphenhydramine HCl (Diphenhydramine Capsule 25 Mg Cap) 25 mg PO DAILY PRN PRN Reason: Migraine Headache Stop: 05/26/24 08:16 Enoxaparin Sodium (Enoxaparin Inj 40 Mg/0.4 Ml Syr) 40 mg SQ HS RESHMA Stop: 05/20/24 21:17 Last Admin: 04/24/24 21:22 Dose: Not Given Fluticasone Propionate (Fluticasone Propionate Na Spr 16 Gm Btl) 1 sprays NA DAILY PRN PRN Reason: Nasal Congestion Stop: 05/22/24 08:59 Piperacillin Sod/Tazobactam Sod (Zosyn) 4.5 gm in 100 mls @ 25 mls/hr IV Q8H RESHMA; Protocol Stop: 05/01/24 00:59 Last Admin: 04/26/24 08:28 Dose: 25 mls/hr Lactobacillus Acidophilus (Advanced Probiotic 625 Mg Capsule) 1,250 mg PO DAILY RESHMA Stop: 05/21/24 08:59 Last Admin: 04/26/24 08:28 Dose: 1,250 mg Melatonin (Melatonin 3 Mg Tab) 6 mg PO HS PRN PRN Reason: Sleep Stop: 05/20/24 21:17 Last Admin: 04/25/24 21:01 Dose: 6 mg Morphine Sulfate (Morphine Sulfate 4 Mg/Ml 1 Ml Carp\Vial) 3 mg IV Q3H PRN PRN Reason: Severe Pain (Scale 7, 8, 9,10) Stop: 05/04/24 21:17 Last Admin: 04/26/24 10:03 Dose: 3 mg Ondansetron HCl (Ondansetron Inj 2 Mg/Ml 2 Ml Vial) 4 mg IV Q6H PRN PRN Reason: Nausea Stop: 05/20/24 21:17 Last Admin: 04/22/24 07:35 Dose: 4 mg Oxycodone HCl (Oxycodone Hcl Ir 5 Mg Tab (Immediate Release)) 5 mg PO Q6H PRN PRN Reason: Moderate Pain (Scale 4, 5, 6) Stop: 05/08/24 18:55 Last Admin: 04/26/24 03:10 Dose: 5 mg
[2024-04-26] MEDS: diphenhydrAMINE Capsule 25 MG CAP PO PRN ×2 (17:00→23:32)
[2024-04-27] MEDS ORDERED: oxyCODONE/ACETAMINOPHEN 5mg/325mg TAB PO PRN (08:07)
--- NOTE | 2024-04-27 08:13 | Surgery Progress Note ---
<Statement entered by Mac Pillai DO - 04/27/24 09:40> I have seen and examined this patient. I agree with this plan. Most recent CT showed resolution of purulent fluid within abscess cavity. Advance to low fiber, if he tolerate well without worsened symptoms, he may be discharged home on oral antibiotics to complete a total of a 14 day course. Continue IV abx while in patient. Date of Service April 27, 2024 Assessment & Plan (1) Colonic diverticular abscess: Plan: advance to low fiber see how he tolerates stop IV pain meds continue orals TTP LLQ, RLQ VSs , continue iv antibx OOB chair, ambulation Admission and Anticipated Discharge Date Admission Date: April 20, 2024 Subjective better than yesterday still with pain when passing flatus no bm yet pain worse at night denies f/c , n/v Review of Systems Constitutional: no fever and no chills Respiratory: no dyspnea Cardiovascular: no chest pain Gastrointestinal: + abdominal pain and + cramping; no bloa ting, no nausea and no vomiting Genitourinary: no dysuria Musculoskeletal: no muscle weakness Integumentary: no rash Physical Exam Constitutional: cooperative and comfortable; no acute distress Respiratory: normal respiratory effort and able to speak in complete sentences; no respiratory distress Cardiovascular: Rate/Rhythm: regular rate Gastrointestinal (Abdomen): Inspection/Auscultation: abdomen not distended Percussion/Palpation: + abdomen tender and abdomen soft Musculoskeletal: no cyanosis or clubbing, extremities motor strength 5/5 Results & Data Vital Signs (Past 12 Hours) Vital Signs Temp Pulse Resp BP Pulse Ox O2 Del Method 04/27/24 07:54 97.9 F 59 L 16 132/84 93 Room Air 04/26/24 20:35 Room Air 04/26/24 20:27 98.2 F 65 14 122/84 94 Room Air PG Care Time/CCT Total # of Minutes Spent Total Time Spent with Patient: Total time spent is greater than 50% in coordination of care (as documented) at patient's floor/unit and/or counseling patient: Coding Level of Care Code 64289 SUB INP/OBS CARE 07/22MIN Diagnoses Colonic diverticular abscess K57.20
--- NOTE | 2024-04-27 15:39 | Discharge Summary ---
Date of Service April 27, 2024 Admission HPI Per Admitting Provider This is a 48-year-old male who has significant past medical history of anxiety and seasonal allergies who presents to ED secondary to abdominal pain x 4 days. 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 He states recently he went to urgent care due to fever and sinus pressure. He was told he had a sinus infection and a double ear infection. He was started on azithromycin. He took 2 days of the azithromycin and got, "deathly ill." He complained of a stabbing lower abdominal pain with nausea and diarrhea. He stopped the azithromycin and those symptoms mostly resolved. And then 4 to 5 days ago he developed dull, persistent suprapubic to left lower quadrant abdominal pain. Patient persisted over the past 4 to 5 days. In the evening he would get a persistent fever. Over the last 24 hours he has had minimal intake. He reports to pain with defecation as well as some hematochezia. He denies any chills, sweats, lightheadedness, dizziness, chest pain, shortness of breath, cough, nausea, vomiting, dysuria, increased urgency or frequency with urination. In ED patient remained hemodynamically stable though mildly tachycardic. CT abdomen pelvis reveal sigmoid diverticulitis and a 4.0 cm diverticular abscess between the sigmoid colon and rectosigmoid junction nonamenable to percutaneous drainage. Admission Exam Per Admitting Provider Constitutional: WD/WN, vitals as above, NAD, sitting up in bed, pleasant, conversing easily Head: Normocephalic, Atraumatic Eyes: PERRL, conjunctivae normal, anicteric sclerae ENMT: external ear and nose normal, oropharynx normal Neck: trachea midline, no thyromegaly normal visual inspection Respiratory: normal respiratory effort, lungs clear to auscultation, no wheeze, rales, rhonchi. Normal insp/exp effort, no accessory muscle use Cardiovascular: RRR, no murmur, no edema Vessels: no JVD or carotid bruit Chest: normal inspection of chest Abdomen: normal bowel sounds, soft, TTP suprapubic region, LLQ, no rebound/guarding Musculoskeletal: no cyanosis or clubbing, extremities motor strength 5/5 Skin: no rashes, warm and dry normal turgor Neurologic: PERRL, EOMI, accommodation nl, no face palsy, no dysarthria CN's II-XI intact bilaterally and moves all extremities Psychiatric: A+Ox3, euthymic affect Lymphatic: no cervical or axillary lymphadenopathy : pt with what appears to be int/ext hemorrhoid, nonthrombosed at approx 9oclock, pt reports protruding area with BM and resolves after Principal Diagnosis sigmoid diverticulitis with abscess Discharge Exam Gen: WD/WN, NAD, A&O x3 HEENT: Normocephalic, atraumatic, conjunctivae moist, sclerae anicteric, mucous membranes moist. Lung: Clear to Auscultation bilaterally, no wheezes/rales/rhonchi Heart: Regular rate, regular rhythm, no murmurs, rubs, or gallops Abdomen: Soft, benefit specialist TTP lower abd, ND +BS x 4 Extremities: No edema Skin: Warm, no rash, negative turgor. Discharge Data Allergies Allergy/AdvReac Type Severity Reaction Status Date / Time grass pollen Allergy Verified 05/29/21 13:14 house dust mite Allergy Verified 05/29/21 13:14 mold Allergy Verified 05/29/21 13:14 No Known Drug Allergies Allergy Verified 05/29/21 13:14 Consultations 04/20/24 18:30 ED Decision to Admit Stat 04/20/24 18:48 Consult General Surgery Routine Procedures Performed Operation Date: 04/26/24 07:30 <No data on this case meets the specified criteria> Ordered Studies 04/20/24 15:57 CT abd pelvis IV con only Stat 04/23/24 07:00 CT abd pelvis IV con only Routine 04/25/24 11:22 CT Abd and Pelvis [CT abd pelvis IV con only] Urgent Hospital Course (1) Sigmoid diverticulitis: (2) Intestinal diverticular abscess: Plan Per Lauryn PAYNE's yesterday's progress note w/ addendum for today: This is a 48-year-old male who has significant past medical history of anxiety and seasonal allergies who presents to ED secondary to abdominal pain x 4 days. Sigmoid diverticulitis with abscess 4.0 CM diverticular abscess between sigmoid colon and rectosigmoid junction IV Zosyn, diet advanced to clear liquids on 04/22 Currently on full liquids - gen surg recommends not advancing beyond this at this time General Surgery following, discussed with Luciana Izaguirre PA-C Will need a colonoscopy in 6 to 8 weeks. Remains afebrile with no leukocytosis * Repeat abdomen/pelvis CT completed on 04/23 Again noted is diverticular abscess between the sigmoid colon and rectosigmoid junction measuring approximately 2.5 x 3.3 cm. Compared to the prior exam there is more air within the abscess, which is otherwise stable in size, cannot rule out fistulous connection. Interval decrease in surrounding inflammatory changes. Stable amount of diverticulosis. * Repeat CT a/p 04/25: Acute sigmoid diverticulitis remonstrate with mildly decreased inflammatory changes.2. Contained perforation/abscess within the sigmoid mesocolon/perirectal tissues redemonstrated which has a decreased amount of fluid within the collection and is predominantly now just air-fille d. An underlying sinus tract/fistulous connection with the adjacent sigmoid would be difficult to exclude. No drainable fluid collections are present.3. There are a few small locules of extra luminal air within the left hemipelvis adjacent to the internal iliac vessels compatible with microperforation. Discussed with general surgery plan is to maintain the course for now with IV antibiotics as he is showing slow improvement in hopes to avoid surgery Hx migraines: Migraine over the weekend relieved with meds will place on prn fiorcet and benadryl Full code DVT prophylaxis: Subcu Lovenox resumed as pt is not undergoing surgical eval Dispo: d/c to home when medically able, not yet medically ready Addendum 04/27/2024: Patient was seen and examined at bedside as a follow-up of sigmoid diverticulitis with abscess. Patient reports continued improvement in his lower belly pain, nontender to exam today. Patient reports pain at 3-4/10. Patient denies any increase in abdominal pain with advancement of diet. Discussed with surgery, plan for 14 days antibiotic therapy and follow-up with surgery in about 2 weeks time upon discharge. Patient would like to go home. Patient is hemodynamically stable. Patient is being discharged with following instruction at the point of discharge: Follow-up with your primary care physician within a week time and likely you will need labs CBC/CMP/magnesium/phosphorus. You will be discharged on antibiotic to complete 14-day course of therapy. Follow-up with general surgery in 2 weeks time upon discharge. Maintain low fiber diet for next several days before you transition back to your regular consistency diet. If with increasing abdominal pain, contact your general surgery office or emergency immediately. You will need colonoscopy in about 8 weeks time upon discharge, coordinate with the PCP office to set up the referral. Take your medications as prescribed. Please make sure that you are able to get your medications today by calling your pharmacy before you leave the hospital so that your treatment continuity is not broken. Home Health Attestation I certify that this patient is under my care and that I, or a physicians psych assistant working with me, had a face to-face encounter that meets the home health [id number] encounter requirements with this patient. The encounter with the patient was in whole, or in part, for the following medical condition, which is the primary reason for home health care (list medical condition): I certify that, based on my findings, the following services are medically necessary home health services: My clinical findings support the need for the above services because: Further, I certify that my clinical findings support that this patient is homebound (i.e. absences from home require considerable and taxing effort and are for medical reasons or yazidi services or infrequently or of short duration when for other reasons) because: Certification for Home Health Services: Based on the above findings, I certify that this patient is confined to the home and needs intermittent long-term care, physical therapy and/or speech therapy or continues to need occupational therapy. The patient is under my care, and I have initiated the establishment of the plan of care. This patient will be followed by a physician who will periodically review the plan of care. Total Time Total Time Spent Total Time Spent (In Minutes): 40 Discharge Plan Discharge Items Patient Disposition: Home - Self-Care Reason For Visit: ACUTE DIVERTICULITIS WITH ABSCESS Discharge Diagnosis: sigmoid diverticulitis with abscess Activity: Resume your previous activity Non-emergency contact: Primary Care Provider Call non-emergency contact if: you have any medication questions, your symptoms worsen and your temperature is above 101 Follow-up/Referrals: Mac Pillai DO [Physician] - (call office for follow up in 2 weeks ) Faith Marrero MD [Primary Care Provider] - Diet: Low Fiber Addtl Attending Provider Instructions: Follow-up with your primary care physician within a week time and likely you will need labs CBC/CMP/magnesium/phosphorus. You will be discharged on antibiotic to complete 14-day course of therapy. Follow-up with general surgery in 2 weeks time upon discharge. Maintain low fiber diet for next several days before you transition back to your regular consistency diet. If with increasing abdominal pain, contact your general surgery office or emergency immediately. You will need colonoscopy in about 8 weeks time upon discharge, coordinate with the PCP office to set up the referral. Take your medications as prescribed. Please make sure that you are able to get your medications today by calling your pharmacy before you leave the hospital so that your treatment continuity is not broken. Pending Studies at Discharge: No Stand-Alone Forms: My [facility], Smoking Cessation Medications and DC Order Prescriptions: New Advanced Probiotic 625 mg (10 billion cell) Capsule 1 cap PO DAILY 14 Days Qty: 14 0RF amoxicillin-pot clavulanate 875-125 mg tablet 1 tab PO BID 8 Days Qty: 16 0RF Continued montelukast [Singulair] 10 mg tablet 10 mg PO DAILY PRN (Reason: Allergy Symptoms) sumatriptan succinate 50 mg tablet 50 mg PO UD MDD 4 tablets PRN (Reason: Migraine Headache) Rx Instructions: tae 2 tabs at onset of migraine and 1 tab every 2 hours as needed not more than 4 tablets in 24 hours alprazolam 0.5 mg tablet 0.5 mg PO UD PRN (Reason: Anxiety) Rx Instructions: take 1 tablet as needed for anxiety, use sparingly it is not for daily use Discharge Orders: Discharge Order (Routine); Ordered 04/27/24 Ordered By: Marli Kc Admission Data Admit Date/Time: 04/20/24 18:48 Attending Provider: Marli Kc Admit Provider: Dequan Andersen Primary Care Provider: Faith Marrero Other Providers: Steve Mosquera; Dequan Andersen
--- NOTE | 2024-04-27 17:31 | Hospitalist Progress Note ---
Date of Service April 27, 2024 Assessment & Plan (1) Sigmoid diverticulitis: (2) Intestinal diverticular abscess: Plan Per Lauryn PAYNE's yesterday's progress note w/ addendum for today: This is a 48-year-old male who has significant past medical history of anxiety and seasonal allergies who presents to ED secondary to abdominal pain x 4 days. Sigmoid diverticulitis with abscess 4.0 CM diverticular abscess between sigmoid colon and rectosigmoid junction IV Zosyn, diet advanced to clear liquids on 04/22, now on low fiber diet, pt reports no increase in pain w/ diet but had increase belly pain after BM today evening. Will need a colonoscopy in 6 to 8 weeks. Remains afebrile with no leukocytosis * Repeat abdomen/pelvis CT completed on 04/23 Again noted is diverticular abscess between the sigmoid colon and rectosigmoid junction measuring a pproximately 2.5 x 3.3 cm. Compared to the prior exam there is more air within the abscess, which is otherwise stable in size, cannot rule out fistulous connection. Interval decrease in surrounding inflammatory changes. Stable amount of diverticulosis. * Repeat CT a/p 04/25: Acute sigmoid diverticulitis remonstrate with mildly decreased inflammatory changes.2. Contained perforation/abscess within the sigmoid mesocolon/perirectal tissues redemonstrated which has a decreased amount of fluid within the collection and is predominantly now just air- filled. An underlying sinus tract/fistulous connection with the adjacent sigmoid would be difficult to exclude. No drainable fluid collections are present.3. There are a few small locules of extra luminal air within the left hemipelvis adjacent to the internal iliac vessels compatible with microperforation. Discussed with general surgery plan is to maintain the course for now with IV antibiotics as he is showing slow improvement, to PO atb on dc for total of 14 days. iv atb while inpatient. Hx migraines: Migraine over the weekend relieved with meds will place on prn fiorcet and benadryl Full code DVT prophylaxis: Subcu Lovenox Dispo: had increased belly pain later in the evening, dc cancelled, will eval in am. Admission and Anticipated Discharge Date Admission Date: April 20, 2024 Subjective better than yesterday still with pain when passing flatus , about 3-4/10 no increase in pain w/ diet, but had increase in pain after BM, pt decided to stay. DC cancelled. denies f/c , n/v Physical Exam 2 Physical Exam: Gen: WD/WN, NAD, A&O x3 HEENT: Normocephalic, atraumatic, conjunctivae moist, sclerae anicteric, mucous membranes moist. Lung: Clear to Auscultation bilaterally, no wheezes/rales/rhonchi Heart: Regular rate, regular rhythm, no murmurs, rubs, or gallops Abdomen: Soft, faculty research physician TTP lower abd, ND +BS x 4 Extremities: No edema Skin: Warm, no rash, negative turgor. Results & Data Results & Data Vital Signs (Past 12 Hours) Vital Signs Temp Pulse Resp BP Pulse Ox O2 Del Method 04/27/24 16:10 37.0 C 77 16 142/86 H 97 Room Air 04/27/24 07:54 36.6 C 59 L 16 132/84 93 Room Air
[2024-04-28 07:13] LABS: Hematocrit (blood only) 45.4 % (42.0-52.0); Hemoglobin 15.3 g/dl (14.0-18.0); Mean Corpuscular Hemoglobin 27.2 pg (25.0-34.0); Mean Corpuscular Hgb Conc 33.7 g/dL (32.0-36.0); Mean Corpuscular Volume 80.8 fL (80.0-100.0); Mean Platelet Volume 8.8 fL (9.4-12.4); Platelet Count 307 K/uL (130-400); RDW Coefficient of Variation 14.1 % (11.5-14.5); RDW Standard Deviation 41.3 fL (36.4-46.3); Red Blood Count 5.62 M/uL (4.70-6.10); White Blood Count 6.69 K/ul (4.8-10.8)
[2024-04-28 07:30] LABS: BUN Creatinine Ratio 15.9 (10-20); Calcium 9.1 mg/dl (8.6-10.3); Magnesium 2.2 mg/dl (1.7-2.4); Phosphorus 3.4 mg/dl (2.5-4.9); Potassium 4.5 mmol/L (3.5-5.1)
--- NOTE | 2024-04-28 08:23 | Surgery Progress Note ---
<Statement entered by Mac Pillai DO - 04/28/24 08:42> I have seen and examined this patient with the surgical PA and I agree with this plan Date of Service April 28, 2024 Assessment & Plan (1) Colonic diverticular abscess: Plan: Patient here w/ acute diverticulitis with abscess -last CT scanned on 04/25 showed decreased inflammation, resolution of the fluid in abscess and is now predominately air filled without any drainable fluid collections, & some small foci of extraluminal air consistent w/ microperforation - pt with episode of pain during BM yesterday. outside of this he denies abdominal pain/n/v or worsening pain with eating -vital signs have been stable without fevers or tachycardia. labs show normal WBC at 6.6 -we are okay with continuing a low fiber diet -continue IV abx while in house with plans to transition to orals at home to complete a 14 day course -if patient has a good day we are okay with considering discharge to home pending his symptoms -could consider a stool softener as well at this point, but the BM was softly formed and not difficult for him to pass -no plans for acute surgical intervention at this time -[facility] surgery covering wknd if questions/concerns Admission and Anticipated Discharge Date Admission Date: April 20, 2024 Subjective Patient feeling well this AM. He reports an episode of severe pain that made him shake and sweat while having a bowel movement yesterday. He said it was formed, but not hard for him to pass but that the pain was located from his rectum to his testicle region like a c-clamp. He has since been okay without nausea/vomiting or other worsening abdominal pain. He's been tolerating an advancing diet without issues. Pt does report history of a hemorrhoid but says this has never been a problem for him, it will protrude with BMs then retract. Physical Exam Physical Exam: awake/alert, no distress Gastrointestinal (Abdomen): Inspection/Auscultation: abdomen not distended Percussion/Palpation: + abdomen tender ( improved ttp in supra pubic/llq regions ) and abdomen soft Results & Data Vital Signs (Past 12 Hours) Vital Signs O2 Del Method 04/27/24 21:36 Room Air PG Care Time/CCT Total # of Minutes Spent Total Time Spent with Patient: Total time spent is greater than 50% in coordination of care (as documented) at patient's floor/unit and/or counseling patient: Coding Level of Care Code 86073 SUB INP/OBS CARE 07/22MIN Diagnoses Colonic diverticular abscess K57.20
[2024-04-28 09:19] VITALS: BP 110/82; PULSE 62; RESP 19; TEMP 98.4; O2SAT 95
== END 2024-04-28 13:21 | disposition home or self-care (01) | DRG 392 ==
LOC: ED 15:28 → SUATTDRO 18:48 → 3N 18:48